=== PATIENT | male | born 1945 | race Caucasian/White ===

== ENCOUNTER → 2016-10-05 | Outpatient (REF) | payer MEDICARE ==
[2016-10-05 19:19] LABS: MEAN CORPUSCULAR HEMOGLOBIN 32.8 pg (27.0-33.0); MEAN CORPUSCULAR HGB CONC 32.6 g/dl (32.0-36.5); MEAN CORPUSCULAR VOLUME 100.6 fl (80.0-96.0); RED CELL DISTRIBUTION WIDTH 12.8 % (11.5-14.5); WHITE BLOOD COUNT 4.5 K/mm3 (4.0-10.0)
[2016-10-05 20:11] LABS: ALBUMIN/GLOBULIN RATIO 1.43 (1.00-1.93); ALKALINE PHOSPHATASE 87 U/L (45-117); ALT/SGPT 23 U/L (12-78); ANION GAP 6 MEQ/L (8-16); AST/SGOT 25 U/L (15-37); BILIRUBIN,TOTAL 0.8 MG/DL (0.2-1.0); BLOOD UREA NITROGEN 17 MG/DL (7-18); CARBON DIOXIDE LEVEL 32 MEQ/L (21-32); CHLORIDE LEVEL 104 MEQ/L (98-107); CHOLESTEROL LEVEL 185 MG/DL (<200); CREATININE FOR GFR 0.81 MG/DL (0.70-1.30); GLOMERULAR FILTRATION RATE > 60.0 (>42); GLUCOSE, FASTING 109 MG/DL (83-110); POTASSIUM SERUM 4.5 MEQ/L (3.5-5.1); SODIUM LEVEL 142 MEQ/L (136-145); TOTAL PROTEIN 6.8 GM/DL (6.4-8.2); TRIGLYCERIDES LEVEL 49 MG/DL (<150)
== END ==
LOC: M SFHCCAPE 10:07
PROVIDERS: ATTEND Internal Medicine
DX: R03.0 Elevated blood-pressure reading, without diagnosis of hypertension (principal); E78.00 Pure hypercholesterolemia, unspecified

== ENCOUNTER → 2016-10-07 | Outpatient (CLI) | payer MEDICARE ==
--- NOTE | 2016-10-07 14:03 | REP ---
Supine abdomen single AP view: Comparison is 10/17/2013. Multiple left renal calculi are again noted. No right renal calculi are identified, however the right kidney is obscured by bowel wall. There are numerous pelvic calcifications bilaterally, unchanged, likely phleboliths. The bowel gas pattern is normal. Skeletal structures and soft tissues are otherwise unremarkable except for bilateral hip osteoarthritis and mild lumbar spine degenerative disc disease. Impression: Left renal calculi. Signed by August Luz MD 10/07/2016 01:44 P
== END ==
LOC: M SMT 11:15
PROVIDERS: ATTEND Urology
DX: Z12.5 Encounter for screening for malignant neoplasm of prostate (principal); N20.0 Calculus of kidney
CPT/HCPCS: 36415; 74000; G0103; G0463

== ENCOUNTER 2017-02-01 06:32 | Emergency (ER) | payer MEDICARE ==
[~2017-02-01] VITALS: Ht 177.8 cm; Wt 77.2 kg
[2017-02-01 06:52] VITALS: BP 165/78
[2017-02-01] MEDS ORDERED: PRED10TA2 PO (07:41)
[2017-02-01] MEDS ORDERED: LORATADINE 10 MG TAB PO ONE (07:45)
[2017-02-01] MEDS ORDERED: predniSONE 20 MG TAB PO ONE (07:45)
== END 2017-02-01 07:54 | disposition home or self-care (01) ==
LOC: M ED 06:32
DX: L23.7 Allergic contact dermatitis due to plants, except food (principal); Z87.442 Personal history of urinary calculi

== ENCOUNTER → 2017-10-05 | Outpatient (REF) | payer MEDICARE ==
[2017-10-05 16:33] LABS: HEMOGLOBIN 16.5 g/dl (13.5-17.5); MEAN CORPUSCULAR HEMOGLOBIN 32.4 pg (27.0-33.0); MEAN CORPUSCULAR HGB CONC 33.7 g/dl (32.0-36.5); MEAN CORPUSCULAR VOLUME 96.3 fl (80.0-96.0); PLATELET COUNT, AUTOMATED 299 10^3/uL (150-450); RED BLOOD COUNT 5.09 10^6/uL (4.30-6.10); RED CELL DISTRIBUTION WIDTH 12.7 % (11.5-14.5); WHITE BLOOD COUNT 4.6 10^3/uL (4.0-10.0)
[2017-10-05 16:47] LABS: ALBUMIN 3.9 GM/DL (3.2-5.2); ALBUMIN/GLOBULIN RATIO 1.34 (1.00-1.93); ALKALINE PHOSPHATASE 86 U/L (45-117); ALT/SGPT 17 U/L (12-78); ANION GAP 5 MEQ/L (8-16); AST/SGOT 13 U/L (7-37); BILIRUBIN,TOTAL 0.7 MG/DL (0.2-1.0); BLOOD UREA NITROGEN 13 MG/DL (7-18); CALCIUM LEVEL 8.4 MG/DL (8.8-10.2); CARBON DIOXIDE LEVEL 28 MEQ/L (21-32); CHLORIDE LEVEL 108 MEQ/L (98-107); CHOLESTEROL LEVEL 191 MG/DL (<200); CHOLESTEROL RISK RATIO 2.652 (<5); CREATININE FOR GFR 0.77 MG/DL (0.70-1.30); GLOMERULAR FILTRATION RATE > 60.0 (>42); GLUCOSE, FASTING 106 MG/DL (70-100); HDL CHOLESTEROL 72 MG/DL (>40); LDL CHOLESTEROL 105.2 MG/DL (<100); NON-HDL-C 119 MG/DL; POTASSIUM SERUM 4.6 MEQ/L (3.5-5.1); SODIUM LEVEL 141 MEQ/L (136-145); TOTAL PROTEIN 6.8 GM/DL (6.4-8.2); TRIGLYCERIDES LEVEL 69 MG/DL (<150)
[2017-10-05 17:00] LABS: ESTIMATED AVERAGE GLUCOSE 123 MG/DL (60-110); HEMOGLOBIN A1c 5.9 %
== END ==
LOC: M SFHCCAPE 07:30
DX: G47.33 Obstructive sleep apnea (adult) (pediatric) (principal); E78.00 Pure hypercholesterolemia, unspecified; R03.0 Elevated blood-pressure reading, without diagnosis of hypertension; R73.09 Other abnormal glucose
CPT/HCPCS: 80053

== ENCOUNTER → 2017-10-18 | Outpatient (CLI) | payer MEDICARE | LOC: M SMT 13:02 | DX: N20.0 Calculus of kidney (principal); Z12.5 Encounter for screening for malignant neoplasm of prostate | CPT/HCPCS: 74018; G0103 ==

== ENCOUNTER → 2017-10-18 | Outpatient (CLI) | payer MEDICARE ==
[2017-10-18 17:32] LABS: PSA SCREENING 0.84 NG/ML (< 4.0)
== END ==
LOC: M SMT 13:35
DX: Z12.5 Encounter for screening for malignant neoplasm of prostate (principal)
CPT/HCPCS: G0103

== ENCOUNTER 2017-12-13 04:11 | Emergency (ER) | payer MEDICARE ==
[2017-12-13 04:51] LABS: BASO % 0.8 % (0.0-1.0); EOS # 0.1 10^3/uL (0.0-0.50); EOS % 1.5 % (0.0-3.0); HEMATOCRIT 47.6 % (42.0-52.0); HEMOGLOBIN 15.9 g/dl (13.5-17.5); IMMATURE GRANULOCYTE % 0.2 % (0-3.0); LYMPH # 1.1 10^3/uL (1.5-4.5); LYMPH % 23.7 % (24.0-44.0); MEAN CORPUSCULAR HEMOGLOBIN 32.7 pg (27.0-33.0); MEAN CORPUSCULAR HGB CONC 33.4 g/dl (32.0-36.5); MEAN CORPUSCULAR VOLUME 97.9 fl (80.0-96.0); MONO # 0.4 10^3/uL (0.0-0.8); MONO % 7.3 % (0.0-5.0); NEUTROPHILS # 3.2 10^3/uL (1.8-7.7); NEUTROPHILS % 66.5 % (36.0-66.0); PLATELET COUNT, AUTOMATED 281 10^3/uL (150-450); RED BLOOD COUNT 4.86 10^6/uL (4.30-6.10); RED CELL DISTRIBUTION WIDTH 12.8 % (11.5-14.5); WHITE BLOOD COUNT 4.8 10^3/uL (4.0-10.0)
[2017-12-13 04:56] LABS: KETONE, URINE AUTO RFX NEGATIVE (NEGATIVE); LEUKOCYTE ESTERASE UR AUTO RFX NEGATIVE (NEGATIVE); MUCUS, URINE RFX SMALL (NEGATIVE); NITRITE, URINE AUTO RFX NEGATIVE (NEGATIVE); RBC, URINE AUTO RFX TNTC /HPF (0-3); SPECIFIC GRAVITY UR AUTO RFX 1.021 (1.002-1.035); SQUAM EPITHELIAL CELL UR AURFX 0 /HPF (0-6); WBC, URINE AUTO RFX 2 /HPF (0-3)
[2017-12-13 05:40] LABS: ALBUMIN 3.4 GM/DL (3.2-5.2); ALBUMIN/GLOBULIN RATIO 1.31 (1.00-1.93); ALKALINE PHOSPHATASE 79 U/L (45-117); ALT/SGPT 21 U/L (12-78); ANION GAP 5 MEQ/L (8-16); AST/SGOT 14 U/L (7-37); BILIRUBIN,DIRECT < 0.1 MG/DL (0.0-0.2); BILIRUBIN,TOTAL 0.3 MG/DL (0.2-1.0); BLOOD UREA NITROGEN 21 MG/DL (7-18); CALCIUM LEVEL 8.2 MG/DL (8.8-10.2); CARBON DIOXIDE LEVEL 28 MEQ/L (21-32); CHLORIDE LEVEL 110 MEQ/L (98-107); CREATININE FOR GFR 0.73 MG/DL (0.70-1.30); GLOMERULAR FILTRATION RATE > 60.0 (>42); GLUCOSE, FASTING 117 MG/DL (70-100); POTASSIUM SERUM 4.3 MEQ/L (3.5-5.1); SODIUM LEVEL 143 MEQ/L (136-145)
[2017-12-13] MEDS ORDERED: ISOVUE-370 76% 100ML VIAL (Q9967) As Ordered (05:42)
== END 2017-12-13 06:58 | disposition home or self-care (01) ==
LOC: M ED 04:11
DX: N20.0 Calculus of kidney (principal); R31.9 Hematuria, unspecified; Z87.442 Personal history of urinary calculi; Z98.890 Other specified postprocedural states
CPT/HCPCS: Q9967

== ENCOUNTER → 2018-10-27 | Outpatient (REF) | payer MEDICARE ==
[~2018-10-27] MED LIST: OXYC1TAB23 PO; PRED10TA2 PO
[2018-10-27 16:54] LABS: HEMATOCRIT 49.1 % (42.0-52.0); HEMOGLOBIN 16.3 g/dl (13.5-17.5); MEAN CORPUSCULAR HEMOGLOBIN 33.4 pg (27.0-33.0); MEAN CORPUSCULAR HGB CONC 33.2 g/dl (32.0-36.5); MEAN CORPUSCULAR VOLUME 100.6 fl (80.0-96.0); PLATELET COUNT, AUTOMATED 304 10^3/uL (150-450); RED BLOOD COUNT 4.88 10^6/uL (4.30-6.10); WHITE BLOOD COUNT 4.8 10^3/uL (4.0-10.0)
[2018-10-27 17:28] LABS: ALBUMIN 3.4 GM/DL (3.2-5.2); ALT/SGPT 22 U/L (12-78); BILIRUBIN,TOTAL 0.5 MG/DL (0.2-1.0); BLOOD UREA NITROGEN 21 MG/DL (7-18); CALCIUM LEVEL 8.1 MG/DL (8.8-10.2); CARBON DIOXIDE LEVEL 30 MEQ/L (21-32); CHLORIDE LEVEL 109 MEQ/L (98-107); CHOLESTEROL LEVEL 195 MG/DL (<200); CHOLESTEROL RISK RATIO 2.826 (<5); CREATININE FOR GFR 0.86 MG/DL (0.70-1.30); GLOMERULAR FILTRATION RATE > 60.0 (>42); GLUCOSE, FASTING 111 MG/DL (70-100); HDL CHOLESTEROL 69 MG/DL (>40); LDL CHOLESTEROL 109 MG/DL (<100); NON-HDL-C 126 MG/DL; POTASSIUM SERUM 4.5 MEQ/L (3.5-5.1); SODIUM LEVEL 142 MEQ/L (136-145); TOTAL PROTEIN 6.1 GM/DL (6.4-8.2); TRIGLYCERIDES LEVEL 83 MG/DL (<150)
== END ==
LOC: M SFHCCAPE 07:11
PROVIDERS: ATTEND Internal Medicine
DX: G47.33 Obstructive sleep apnea (adult) (pediatric) (principal); R03.0 Elevated blood-pressure reading, without diagnosis of hypertension; E78.00 Pure hypercholesterolemia, unspecified

== ENCOUNTER → 2018-11-02 | Outpatient (CLI) | payer MEDICARE ==
--- NOTE | 2018-11-02 15:55 | REP ---
KUB ABDOMEN AND PELVIS: KUB film of abdomen and pelvis is performed and compared to prior study of 10/18/2017. There is a nonobstructive bowel gas pattern. An oval calcification overlying the upper pole of the left kidney appears to represent a renal calculus measuring about 6 mm. On the prior study there appeared to be an adjacent second calculus, but this is not visualized on today's exam. There is a small calculus in the lower pole of the left kidney which measures 3 mm. Otherwise there are phleboliths again seen bilaterally in the pelvis. There are degenerative changes of the spine and hips. IMPRESSION: Two intrarenal calculi left kidney, one in the upper pole 6 mm in diameter and one in the lower pole 3 mm in diameter. Electronically Signed by August Roldan MD 11/02/2018 04:11 P
== END ==
LOC: M SMT 14:17
PROVIDERS: ATTEND Nurse Practitioner Family
DX: N20.0 Calculus of kidney (principal)
CPT/HCPCS: 74018; G0463

== ENCOUNTER → 2019-10-31 | Outpatient (REF) | payer MEDICARE ==
[2019-10-31 14:24] LABS: HEMATOCRIT 53.9 % (42.0-52.0); HEMOGLOBIN 17.3 g/dl (13.5-17.5); MEAN CORPUSCULAR HEMOGLOBIN 33.1 pg (27.0-33.0); MEAN CORPUSCULAR HGB CONC 32.1 g/dl (32.0-36.5); MEAN CORPUSCULAR VOLUME 103.1 fl (80.0-96.0); PLATELET COUNT, AUTOMATED 341 10^3/uL (150-450); RED BLOOD COUNT 5.23 10^6/uL (4.30-6.10); WHITE BLOOD COUNT 4.9 10^3/uL (4.0-10.0)
[2019-10-31 14:38] LABS: ALBUMIN 3.7 GM/DL (3.2-5.2); ALT/SGPT 26 U/L (12-78); BILIRUBIN,TOTAL 0.6 MG/DL (0.2-1.0); BLOOD UREA NITROGEN 12 MG/DL (7-18); CALCIUM LEVEL 8.9 MG/DL (8.8-10.2); CARBON DIOXIDE LEVEL 34 MEQ/L (21-32); CHLORIDE LEVEL 105 MEQ/L (98-107); CHOLESTEROL LEVEL 183 MG/DL (<200); CHOLESTEROL RISK RATIO 2.541 (<5); CREATININE FOR GFR 0.87 MG/DL (0.70-1.30); GLOMERULAR FILTRATION RATE > 60.0 (>42); GLUCOSE, FASTING 117 MG/DL (70-100); HDL CHOLESTEROL 72 MG/DL (>40); LDL CHOLESTEROL 100 MG/DL (<100); NON-HDL-C 111 MG/DL; POTASSIUM SERUM 4.7 MEQ/L (3.5-5.1); SODIUM LEVEL 143 MEQ/L (136-145); TOTAL PROTEIN 6.6 GM/DL (6.4-8.2); TRIGLYCERIDES LEVEL 56 MG/DL (<150)
[2019-10-31 15:02] LABS: MAU/CREAT RATIO 6.2 MCG/MG (0.0-30.0)
[2019-10-31 15:06] LABS: HEMOGLOBIN A1c 5.8 %
== END ==
LOC: M PLALAB 09:58
PROVIDERS: ATTEND Internal Medicine
DX: G47.33 Obstructive sleep apnea (adult) (pediatric) (principal); E78.00 Pure hypercholesterolemia, unspecified; R03.0 Elevated blood-pressure reading, without diagnosis of hypertension

== ENCOUNTER → 2019-10-31 | Outpatient (CLI) | payer MEDICARE ==
--- NOTE | 2019-10-31 10:10 | REP ---
KUB: Two views. HISTORY: Kidney stones. Comparison KUB study November 02, 2018. FINDINGS: There is an irregular 8 mm calculus projecting in the upper pole left kidney and a second 5 mm calculus projects in the lower pole left kidney. There are phleboliths in the pelvis. No other definite urinary tract calculi are seen. There are degenerative changes in the hips and in the lumbar spine. IMPRESSION: Intrarenal nephrolithiasis left kidney. Electronically Signed by Howie Rutherford MD 10/31/2019 12:02 P
== END ==
LOC: M WUC 09:12
PROVIDERS: ATTEND Nurse Practitioner Family
DX: N20.0 Calculus of kidney (principal); I87.8 Other specified disorders of veins; M16.0 Bilateral primary osteoarthritis of hip; M51.36 Other intervertebral disc degeneration, lumbar region; G47.33 Obstructive sleep apnea (adult) (pediatric); E78.00 Pure hypercholesterolemia, unspecified; R03.0 Elevated blood-pressure reading, without diagnosis of hypertension; Z79.899 Other long term (current) drug therapy

== ENCOUNTER → 2019-11-27 | Outpatient (CLI) | payer MEDICARE ==
--- NOTE | 2019-11-27 12:26 | REP ---
REASON: History of renal calculi. COMPARISON: Multiple, the latest 12/13/2017, a contrast enhanced examination. Lung bases are clear. Limited evaluation of the solid intra-abdominal organs and gallbladder show no gross abnormalities or significant changes from the prior exam. Limited evaluation of the pancreas and adrenal glands show no gross abnormalities or significant changes from the prior exam. Limited evaluation of the abdominal aorta and paraaortic regions show no gross abnormalities or significant changes from the prior exam. There is bilateral perinephric stranding and bilateral renal cysts status quo. There is a single 2 mm calcification in the right kidney which is not causing obstructive phenomena. This is unchanged. There are three nonobstructing left renal calculi. These are unchanged. There are no ureteroliths and there are no urinary bladder calcifications. There are bilateral pelvic phleboliths status quo. Limited evaluation of the intra-abdominal and antral pelvic bowel loops and their mesenteries show no gross abnormalities or significant changes from the prior exam. No free fluid or free air is seen in the abdomen or pelvis. Bone window technique through the examination shows no significant change in the appearance of osseous structures. Chronic degenerative hip, spinal, and sacroiliac degenerative changes are noted status quo. IMPRESSION: Stable appearing chronic renal changes as described above. Electronically Signed by Ten Ventura DO 11/27/2019 12:36 P
== END ==
LOC: M RAD 09:57
PROVIDERS: ATTEND Nurse Practitioner Family
DX: N20.0 Calculus of kidney (principal); N28.1 Cyst of kidney, acquired

== ENCOUNTER → 2019-12-14 | Outpatient (CLI) | payer MEDICARE ==
[~2019-12-14] MED LIST changes: +CYAN500T14 PO; +ECOT81TA5 PO; +OCUV1CAP4 PO
--- NOTE | 2019-12-14 10:12 | REPPI ---
CHEST X-RAY: Single view. HISTORY: Kidney stone. FINDINGS: Nipple silhouettes project at the bases. The lungs are symmetrically aerated and free of infiltrate. Pleural angles are sharp. Heart size is normal. No acute bony abnormality is appreciated. Pulmonary vasculature is not increased. IMPRESSION: No active disease. Electronically Signed by Howie Rutherford MD 12/14/2019 10:18 A
[2019-12-14 11:21] LABS: HEMATOCRIT 53.9 % (42.0-52.0); HEMOGLOBIN 17.5 g/dl (13.5-17.5); MEAN CORPUSCULAR HGB CONC 32.5 g/dl (32.0-36.5); MEAN CORPUSCULAR VOLUME 101.7 fl (80.0-96.0); PLATELET COUNT, AUTOMATED 338 10^3/uL (150-450); WHITE BLOOD COUNT 4.4 10^3/uL (4.0-10.0)
[2019-12-14 11:35] LABS: INR 1.02; PROTHROMBIN TIME 13.1 SECONDS (11.8-14.0)
[2019-12-14 11:36] LABS: PARTIAL THROMBOPLASTIN TIME 27.5 SECONDS (25.0-38.4)
[2019-12-14 11:42] LABS: BLOOD UREA NITROGEN 21 MG/DL (7-18); CALCIUM LEVEL 8.7 MG/DL (8.8-10.2); CARBON DIOXIDE LEVEL 32 MEQ/L (21-32); CHLORIDE LEVEL 106 MEQ/L (98-107); CREATININE FOR GFR 0.92 MG/DL (0.70-1.30); GLOMERULAR FILTRATION RATE > 60.0 (>42); GLUCOSE, FASTING 109 MG/DL (70-100); POTASSIUM SERUM 5.1 MEQ/L (3.5-5.1); SODIUM LEVEL 141 MEQ/L (136-145)
== END ==
LOC: M PLAIMG 08:32
PROVIDERS: ATTEND Nurse Practitioner Family
DX: Z01.818 Encounter for other preprocedural examination (principal); N20.0 Calculus of kidney

== ENCOUNTER → 2019-12-20 | Outpatient (CLI) | payer MEDICARE ==
[~2019-12-20] MED LIST changes: -CYAN500T14 PO; +CYAN500T8 PO; -ECOT81TA5 PO
--- NOTE | 2019-12-26 22:41 | SLEEPCENT ---
DATE OF PROCEDURE: 12/20/2019 ORDERED BY: LORENA Jaimes Nocturnal polysomnography was performed for the titration of pressure therapy in this patient with obstructive sleep apnea syndrome, apnea-hypopnea index 8.2. For testing, a ResMed AirFit F20 full face mask of medium size was used, 4 cm of water pressure were applied to the circuit and the lights were extinguished. 7 hours and 25 minutes of data were reviewed. There were 185.5 minutes of sleep identified. Sleep latency was prolonged at 47.5 minutes. Rapid eye movement (REM) latency was normal at 58 minutes. Sleep architecture showed fragmentation. There were two REM cycles noted, but there were also two prolonged periods of wake in the night resulting in reduced sleep efficiency of 42.3%. The patient's electrocardiogram showed a sinus rhythm with an average heart rate of 46 beats per minute. Rate ranged 42-80. EEG showed fairly normal waveforms for awake and sleep. Shortly after sleep onset and shortly after each return to sleep in the night, the patient displayed obstructive and central apneas. Pressures were advanced from 4-6 cm. The frequency of central events increased with higher pressures. There were very few limb movements in the EMG leads. No snoring was appreciated and remaining measures of sleep physiology were normal. IMPRESSION: Obstructive sleep apnea syndrome. RECOMMENDATIONS: Though an optimal pressure was unable to be achieved, a pattern of apneas shortly after sleep onset was seen, and the emergence of central events was also prevalent at increased pressures. In light of the this, initiation of continuous positive airway pressure (CPAP) via full face mask and a low pressure of 4 cm may be the most effective strategy. If the patient experiences persistence of sleep symptoms, it may be necessary to have him return to the sleep disorder center for titration using a bilevel device and backup rate.
== END ==
LOC: M SLEEP 20:00
PROVIDERS: ATTEND Nurse Practitioner Family
DX: G47.33 Obstructive sleep apnea (adult) (pediatric) (principal)

== ENCOUNTER → 2019-12-25 | Outpatient (CLI) | payer MEDICARE | LOC: M LABSMTC 10:40 | PROVIDERS: ATTEND Anesthesiology | DX: Z01.818 Encounter for other preprocedural examination (principal); Z11.59 Encounter for screening for other viral diseases | CPT/HCPCS: C9803; U0003 ==

== ENCOUNTER 2019-12-28 06:10 | Day surgery (SDC) | payer MEDICARE ==
[~2019-12-28] VITALS: Ht 177.8 cm; Wt 78.5 kg
[2019-12-28] MEDS ORDERED: LR 1,000 ML IV ONE (07:00)
[2019-12-28] MEDS ORDERED: ceFAZolin SOD 2 GM in IV 1 EA IV ONE (07:00)
[2019-12-28] MEDS ORDERED: LIDOCAINE 2% 100MG/5ML SDV (FOR ANES.) As Ordered ONE (07:05)
[2019-12-28] MEDS ORDERED: propofoL 200 MG/20 ML VIAL As Ordered ONE ×2 (07:05→08:29)
[2019-12-28] MEDS ORDERED: MIDAZOLAM INJ 2MG/2ML VIAL (J2250 PER 1MG) As Ordered ONE (07:06)
[2019-12-28] MEDS ORDERED: fentaNYL 100 MCG/2 ML INJECTION (J3010) As Ordered ONE (07:06)
--- NOTE | 2019-12-28 07:56 | REP ---
Clinical: Preoperative assessment. Technique: Single supine view of the abdomen and pelvis. Comparison: 11/02/2018. Findings: Few small left intrarenal calculi are identified in the mid pole and lower pole measuring roughly 4 mm maximal diameter. Right intrarenal calculi cannot be excluded, and further evaluation is limited due to overlying bowel gas. No evidence for bowel obstruction. No obvious organomegaly. Presumed phleboliths noted in the pelvis. Skeletal structures demonstrate age-related changes. Impression: Few left intrarenal calculi up to 4 mm. Cannot exclude right intrarenal calculi. Electronically Signed by Antione Alex MD 12/28/2019 07:48 A
[2019-12-28 09:40] VITALS: BP 182/83
--- NOTE | 2020-01-03 13:19 | RO ---
DATE OF PROCEDURE: 12/28/2019 PREPROCEDURE DIAGNOSIS: Left kidney stones. POSTPROCEDURE DIAGNOSIS: Left kidney stones. PROCEDURE: Left extracorporeal shockwave lithotripsy. SURGEON: Dr. Krish Ayala CLOCK AND WATCH HANDS MOUNTER: None. ANESTHESIA: Monitored anesthesia care (MAC). OPERATIVE INDICATIONS: This is a 74-year-old male with nonobstructing left kidney stones who was brought to the operating room for the above procedure. DESCRIPTION OF PROCEDURE: The patient was brought to the operating room and MAC anesthesia was administered. Prophylactic antibiotics were infused. He was then placed in the supine position in preparation for the above listed procedure. Ultrasound was utilized to monitor stone position and fragmentation throughout the procedure. Shockwaves were then delivered to the left sided kidney stones ungated. We specifically targeted the larger of the stones in the mid to lower pole calices. There were no arrhythmias. The stones appeared to fragment well. After 2500 shocks, the procedure was concluded. The patient was awakened from anesthesia and transported to the recovery room in stable condition. Estimated blood loss 0 mL. Complications: None. Specimens: None. Plan: The patient will followup in the clinic in a few weeks with imaging prior to assess for residual stone burden. NATALIIA
[2020-01-15] MEDS ORDERED: ECOT81TA5 PO (12:33)
== END 2020-01-29 13:50 | disposition home or self-care (01) ==
LOC: M SDC 06:10
PROVIDERS: ATTEND Urology
DX: N20.0 Calculus of kidney (principal); G47.33 Obstructive sleep apnea (adult) (pediatric); Z79.899 Other long term (current) drug therapy
CPT/HCPCS: 50590; 74018; J0690; J2250; J3010

== ENCOUNTER → 2020-01-17 | Outpatient (CLI) | payer MEDICARE ==
[~2020-01-17] MED LIST changes: +ECOT81TA5 PO
== END ==
LOC: M LABSMTC 10:04
PROVIDERS: ATTEND Anesthesiology
DX: Z01.818 Encounter for other preprocedural examination (principal); Z11.59 Encounter for screening for other viral diseases; Z20.828 Contact with and (suspected) exposure to other viral communicable diseases
CPT/HCPCS: C9803; U0003

== ENCOUNTER → 2020-01-29 | Day surgery (SDC) | payer MEDICARE ==
[~2020-01-29] MED LIST changes: +LIDOCAINE 2% 100MG/5ML SDV (FOR ANES.) As Ordered ONE; +propofoL 500 MG/50 ML VIAL As Ordered ONE
--- NOTE | 2020-03-06 11:27 | ROOR ---
Patient Name: Bo Phan Procedure Date: 01/29/2020 12:36 PM Date of : 1945 Age: 74 Room: [facility] Gender: Male Note Status: Sustainability Manager Override Procedure: Total Colonoscopy to Cecum + Cold Snare Polypectomy + Hemoclips Indications: High risk colon cancer surveillance: Personal history of colonic polyps, Last colonoscopy: 2013 Providers: Srini Dang MD Referring MD: Neel Szymanski MD Requesting Provider: Medicines: Monitored Anesthesia Care Complications: No immediate complications. Procedure: Pre-Anesthesia Assessment: - The heart rate, respiratory rate, oxygen saturations, blood pressure, adequacy of pulmonary ventilation, and response to care were monitored throughout the procedure. The Colonoscope was introduced through the anus and advanced to the cecum, identified by appendiceal orifice and ileocecal valve. The colonoscopy was performed without difficulty. The patient tolerated the procedure well. The quality of the bowel preparation was good. Findings: The perianal and digital rectal examinations were normal. Non-bleeding internal hemorrhoids were found during retroflexion. The hemorrhoids were small and Grade I (internal hemorrhoids that do not prolapse). Multiple sessile polyps were found in the mid ascending colon. The polyps were medium in size. These polyps were removed with a cold snare. Resection and retrieval were complete. To prevent bleeding after the polypectomy, three hemostatic clips were successfully placed (MR conditional). There was no bleeding at the end of the procedure. The exam was otherwise without abnormality on direct and retroflexion views. Impression: - Non-bleeding internal hemorrhoids. - Multiple medium polyps in the mid ascending colon, removed with a cold snare. Resected and retrieved. Clips (MR conditional) were placed. - The examination was otherwise normal on direct and retroflexion views. - The exam was otherwise normal to the cecum. Recommendation: - Patient has a contact number available for emergencies. The signs and symptoms of potential delayed complications were discussed with the patient. Return to normal activities tomorrow. Written discharge instructions were provided to the patient. - High fiber diet. - Discharge patient to home. - Continue present medications. - Await pathology results. - Telephone GI clinic for pathology results in 1 week. - Repeat colonoscopy for surveillance based on pathology results. - Return to referring physician. - The findings and recommendations were discussed with the patient. Srini Dang MD Srini Dang MD 01/29/2020 1:17:42 PM Electronically signed by Srini Dang MD Number of Addenda: 0 Note Initiated On: 01/29/2020 12:36 PM Estimated Blood Loss: Estimated blood loss: none.
== END | disposition home or self-care (01) ==
LOC: M OPP 11:15
PROVIDERS: ATTEND Internal Medicine Gastroenterology
DX: Z12.11 Encounter for screening for malignant neoplasm of colon (principal); Z86.010 Personal history of colon polyps; K64.0 First degree hemorrhoids; D12.2 Benign neoplasm of ascending colon; Z79.82 Long term (current) use of aspirin

== ENCOUNTER → 2020-02-23 | Outpatient (CLI) | payer MEDICARE ==
[~2020-02-23] MED LIST changes: -LIDOCAINE 2% 100MG/5ML SDV (FOR ANES.) As Ordered ONE; -propofoL 500 MG/50 ML VIAL As Ordered ONE
--- NOTE | 2020-03-12 15:25 | REPPI ---
KUB: SINGLE VIEW HISTORY: Kidney stones. COMPARISON: KUB study 12/28/2019. FINDINGS: Bowel gas pattern is unremarkable. There are three metallic mucosal clips in the right colon in the region of the cecum. Phleboliths are noted in the pelvis. There is calcific material projecting over the lower pole of both kidneys and the upper pole of the left kidney. The largest calcific density is in the upper pole region of the left kidney measuring 8 mm in diameter. Bowel gas overlies much of the right kidney. IMPRESSION: Bilateral intrarenal nephrolithiasis as above. An 8 mm calculus upper pole collecting system left kidney. This is larger than on the prior study. MTDD
== END ==
LOC: M PLALAB 08:22
PROVIDERS: ATTEND Nurse Practitioner Family
DX: N20.0 Calculus of kidney (principal)

== ENCOUNTER → 2020-10-16 | Outpatient (CLI) | payer MEDICARE ==
[~2020-10-16] MED LIST changes: +CYAN500T14 PO; -CYAN500T8 PO
--- NOTE | 2020-10-16 09:17 | REPPI ---
INDICATION: KIDNEY STONES. COMPARISON: Comparison radiograph February 23, 2020.. TECHNIQUE: Two views. FINDINGS: Bowel gas pattern is unremarkable. There are degenerative spondylosis changes in the lumbar spine. There are calcific densities again noted projecting over the lower poles of each kidney and at the upper pole region on the left. The largest calcification is in the upper pole on the left measuring 8 mm in greatest diameter as before. There are phleboliths in the pelvis. No other pathologic calcification is seen. Flank stripes and psoas margins are intact. IMPRESSION: Bilateral intrarenal nephrolithiasis. <Electronically signed by Erich Rutherford > 10/16/20 0921
== END ==
LOC: M PLAIMG 08:14
PROVIDERS: ATTEND Nurse Practitioner Family
DX: N20.0 Calculus of kidney (principal); M47.816 Spondylosis without myelopathy or radiculopathy, lumbar region; I87.8 Other specified disorders of veins
CPT/HCPCS: 74018; G0463

== ENCOUNTER → 2020-10-29 | Outpatient (REF) | payer MEDICARE ==
[2020-10-29 16:51] LABS: HEMATOCRIT 50.8 % (42.0-52.0); HEMOGLOBIN 16.9 g/dl (13.5-17.5); MEAN CORPUSCULAR HEMOGLOBIN 33.1 pg (27.0-33.0); MEAN CORPUSCULAR HGB CONC 33.3 g/dl (32.0-36.5); MEAN CORPUSCULAR VOLUME 99.4 fl (80.0-96.0); PLATELET COUNT, AUTOMATED 360 10^3/uL (150-450); RED BLOOD COUNT 5.11 10^6/uL (4.30-6.10); WHITE BLOOD COUNT 5.1 10^3/uL (4.0-10.0)
[2020-10-29 17:23] LABS: ALBUMIN 3.4 GM/DL (3.2-5.2); ALT/SGPT 15 U/L (12-78); BILIRUBIN,TOTAL 0.8 MG/DL (0.2-1.0); BLOOD UREA NITROGEN 16 MG/DL (7-18); CALCIUM LEVEL 8.4 MG/DL (8.8-10.2); CARBON DIOXIDE LEVEL 28 MEQ/L (21-32); CHLORIDE LEVEL 107 MEQ/L (98-107); CHOLESTEROL LEVEL 152 MG/DL (<200); CHOLESTEROL RISK RATIO 2.576 (<5); CREATININE FOR GFR 0.73 MG/DL (0.70-1.30); GLOMERULAR FILTRATION RATE > 60.0 (>42); GLUCOSE, FASTING 111 MG/DL (70-100); HDL CHOLESTEROL 59 MG/DL (>40); LDL CHOLESTEROL 78 MG/DL (<100); NON-HDL-C 93 MG/DL; POTASSIUM SERUM 4.8 MEQ/L (3.5-5.1); SODIUM LEVEL 140 MEQ/L (136-145); TOTAL PROTEIN 5.9 GM/DL (6.4-8.2); TRIGLYCERIDES LEVEL 73 MG/DL (<150)
[2020-10-29 17:40] LABS: FOLATE 12.5 NG/ML; VITAMIN B12 LEVEL 259 PG/ML
[2020-10-29 18:21] LABS: HEMOGLOBIN A1c 5.6 %
== END ==
LOC: M SFHCCAPE 07:38
PROVIDERS: ATTEND Internal Medicine
DX: G47.33 Obstructive sleep apnea (adult) (pediatric) (principal); E78.00 Pure hypercholesterolemia, unspecified; R03.0 Elevated blood-pressure reading, without diagnosis of hypertension; R53.82 Chronic fatigue, unspecified; Z79.899 Other long term (current) drug therapy

== ENCOUNTER → 2021-03-21 | Outpatient (CLI) | payer MEDICARE ==
[~2021-03-21] MED LIST changes: +CHLO125TA; +D31000TA2 PO
== END ==
LOC: M LABSMTC 10:00
PROVIDERS: ATTEND Anesthesiology
DX: Z01.812 Encounter for preprocedural laboratory examination (principal); Z20.822 Contact with and (suspected) exposure to COVID-19

== ENCOUNTER → 2021-03-21 | Outpatient (CLI) | payer MEDICARE ==
--- NOTE | 2021-03-21 10:37 | REP ---
INDICATION: CALCULUS OF KIDNEY. COMPARISON: KUB, 12/28/2019. TECHNIQUE: Two AP supine images of the abdomen were obtained. FINDINGS: There are 2 calcific densities projected over the lower pole of the left kidney measuring 7 and 2 mm in greatest dimension, respectively. There are no calcific densities project over the path of either ureter. There is stool throughout the colon. The bowel gas pattern is otherwise unremarkable. There is multilevel degenerative disc disease of the lumbar spine. IMPRESSION: 1. Left nephrolithiasis. 2. Moderate constipation. <Electronically signed by Shalom Wall > 03/21/21 1030
== END ==
LOC: M PLAIMG 10:09
PROVIDERS: ATTEND Nurse Practitioner Family
DX: Z01.812 Encounter for preprocedural laboratory examination (principal); N20.0 Calculus of kidney; Z20.822 Contact with and (suspected) exposure to COVID-19
CPT/HCPCS: 74018; U0003

== ENCOUNTER 2021-03-26 12:11 | Day surgery (SDC) | payer MEDICARE ==
[~2021-03-26] VITALS: Ht 177.8 cm; Wt 76.2 kg
[~2021-03-26 12:11] MED LIST changes: +NS 1,000 ML IV ONE
[2021-03-26] MEDS ORDERED: propofoL 200 MG/20 ML VIAL As Ordered ONE (14:30)
[2021-03-26] MEDS ORDERED: LIDOCAINE 2% 100MG/5ML SDV (FOR ANES.) As Ordered ONE (14:30)
--- NOTE | 2021-03-26 15:12 | ROOR ---
Patient Name: Bo Phan Procedure Date: 03/26/2021 2:41 PM Date of : 1945 Age: 75 Room: [facility] Gender: Male Note Status: Finalized Procedure: Total Colonoscopy to Cecum + Biopsy Polypectomy Indications: High risk colon cancer surveillance: Personal history of adenoma with villous component Providers: Srini Dang MD Referring MD: Neel Szymanski MD Requesting Provider: Medicines: Monitored Anesthesia Care Complications: No immediate complications. Procedure: Pre-Anesthesia Assessment: - The heart rate, respiratory rate, oxygen saturations, blood pressure, adequacy of pulmonary ventilation, and response to care were monitored throughout the procedure. The Colonoscope was introduced through the anus and advanced to the cecum, identified by appendiceal orifice and ileocecal valve. The colonoscopy was performed without difficulty. The patient tolerated the procedure well. The quality of the bowel preparation was excellent. Findings: The perianal and digital rectal examinations were normal. Non-bleeding external and internal hemorrhoids were found during retroflexion. The hemorrhoids were small and Grade I (internal hemorrhoids that do not prolapse). Two sessile polyps were found in the mid ascending colon. The polyps were small in size. These polyps were removed with a jumbo cold forceps. Resection and retrieval were complete. The exam was otherwise without abnormality on direct and retroflexion views. Impression: - Non-bleeding external and internal hemorrhoids. - Two small polyps in the mid ascending colon, removed with a jumbo cold forceps. Resected and retrieved. - The examination was otherwise normal on direct and retroflexion views. - The exam was otherwise normal to the cecum. Recommendation: - Patient has a contact number available for emergencies. The signs and symptoms of potential delayed complications were discussed with the patient. Return to normal activities tomorrow. Written discharge instructions were provided to the patient. - High fiber diet. - Discharge patient to home. - Continue present medications. - Await pathology results. - Telephone GI clinic for pathology results in 1 week. - Repeat colonoscopy date to be determined after pending pathology results are reviewed for surveillance based on pathology results. - Return to referring physician. - The findings and recommendations were discussed with the patient. Procedure Code(s): --- Professional --- 86430, Colonoscopy, flexible; with biopsy, single or multiple Diagnosis Code(s): --- Professional --- Z86.010, Personal history of colonic polyps K64.0, First degree hemorrhoids K63.5, Polyp of colon CPT copyright 2019 [employer]. All rights reserved. The codes documented in this report are preliminary and upon can tender review may be revised to meet current compliance requirements. Srini Dang MD Srini Dang MD 03/26/2021 3:12:11 PM Electronically signed by Srini Dang MD Number of Addenda: 0 Note Initiated On: 03/26/2021 2:41 PM Estimated Blood Loss: Estimated blood loss: none.
[2021-03-26 15:45] VITALS: BP 142/64
== END 2021-03-26 16:00 | disposition home or self-care (01) ==
LOC: M OPP 12:11
PROVIDERS: ATTEND Internal Medicine Gastroenterology
DX: D12.2 Benign neoplasm of ascending colon (principal); K64.0 First degree hemorrhoids; Z86.010 Personal history of colon polyps; Z09 Encounter for follow-up examination after completed treatment for conditions other than malignant neoplasm; Z79.82 Long term (current) use of aspirin; Z79.899 Other long term (current) drug therapy

== ENCOUNTER → 2021-10-28 | Outpatient (REF) | payer MEDICARE ==
[~2021-10-28] MED LIST changes: -D31000TA2 PO; -NS 1,000 ML IV ONE; +VITA100093 PO
[2021-10-28 16:21] LABS: BASO # 0.1 10^3/uL (0.0-0.2); BASO % 0.8 % (0.0-1.0); EOS # 0.1 10^3/uL (0.0-0.5); EOS % 2.2 % (0.0-3.0); HEMATOCRIT 48.9 % (42.0-52.0); LYMPH # 1.7 10^3/uL (1.5-5.0); LYMPH % 28.5 % (24.0-44.0); MEAN CORPUSCULAR HEMOGLOBIN 32.6 pg (27.0-33.0); MEAN CORPUSCULAR HGB CONC 32.7 g/dl (32.0-36.5); MEAN CORPUSCULAR VOLUME 99.6 fl (80.0-96.0); MONO # 0.4 10^3/uL (0.0-0.8); MONO % 7.5 % (2.0-8.0); NEUTROPHILS # 3.6 10^3/uL (1.5-8.5); NEUTROPHILS % 60.7 % (36.0-66.0); PLATELET COUNT, AUTOMATED 414 10^3/uL (150-450); RED BLOOD COUNT 4.91 10^6/uL (4.30-6.10); WHITE BLOOD COUNT 5.9 10^3/uL (4.0-10.0)
[2021-10-28 16:32] LABS: HEMOGLOBIN A1c 5.7 %
[2021-10-28 16:53] LABS: ALBUMIN 3.3 GM/DL (3.2-5.2); ALT/SGPT 13 U/L (12-78); BILIRUBIN,TOTAL 0.8 MG/DL (0.2-1.0); BLOOD UREA NITROGEN 22 MG/DL (7-18); CALCIUM LEVEL 8.4 MG/DL (8.8-10.2); CARBON DIOXIDE LEVEL 32 MEQ/L (21-32); CHLORIDE LEVEL 105 MEQ/L (98-107); CHOLESTEROL LEVEL 131 MG/DL (<200); CHOLESTEROL RISK RATIO 2.977 (<5); GLOMERULAR FILTRATION RATE > 60.0 (>42); GLUCOSE, FASTING 106 MG/DL (70-100); HDL CHOLESTEROL 44 MG/DL (>40); LDL CHOLESTEROL 63 MG/DL (<100); NON-HDL-C 87 MG/DL; POTASSIUM SERUM 4.6 MEQ/L (3.5-5.1); SODIUM LEVEL 140 MEQ/L (136-145); TOTAL PROTEIN 5.9 GM/DL (6.4-8.2); TRIGLYCERIDES LEVEL 121 MG/DL (<150)
[2021-10-28 17:38] LABS: HEPATITIS C VIRUS ABY INDEX 0.1 INDEX (<0.8)
== END ==
LOC: M SFHCCAPE 07:47
PROVIDERS: ATTEND Internal Medicine
DX: G47.33 Obstructive sleep apnea (adult) (pediatric) (principal); E78.00 Pure hypercholesterolemia, unspecified; Z11.59 Encounter for screening for other viral diseases; R73.09 Other abnormal glucose; Z12.5 Encounter for screening for malignant neoplasm of prostate
CPT/HCPCS: 80053; 80061; 83036; 85025; 86803; G0103

== ENCOUNTER → 2021-11-05 | Outpatient (REF) | payer MEDICARE | LOC: M SFHCPLAZ 08:13 | PROVIDERS: ATTEND Internal Medicine | DX: R61 Generalized hyperhidrosis (principal); M79.10 Myalgia, unspecified site ==

== ENCOUNTER → 2021-11-05 | Outpatient (CLI) | payer MEDICARE ==
[2021-11-05 11:14] LABS: C REACTIVE PROTEIN QUANTITATIV < 0.30 MG/DL (0.00-0.30)
== END ==
LOC: M PLALAB 08:27
PROVIDERS: ATTEND Internal Medicine
DX: M79.10 Myalgia, unspecified site (principal)

== ENCOUNTER → 2021-11-10 | Outpatient (CLI) | payer MEDICARE ==
[~2021-11-10] MED LIST changes: +ISOVUE-370 76% 100ML VIAL ONE
== END ==
LOC: M PLAIMG 13:06
PROVIDERS: ATTEND Internal Medicine
DX: N20.0 Calculus of kidney (principal); R63.4 Abnormal weight loss
CPT/HCPCS: 74170; Q9967

== ENCOUNTER → 2022-01-01 | Outpatient (REF) | payer MEDICARE ==
[~2022-01-01] MED LIST changes: -ISOVUE-370 76% 100ML VIAL ONE
== END ==
LOC: M SFHCDERM 14:26
PROVIDERS: ATTEND Nurse Practitioner Family
DX: D23.39 Other benign neoplasm of skin of other parts of face (principal)

== ENCOUNTER → 2022-02-11 | Outpatient (REF) | payer MEDICARE | LOC: M SFHCDERM 14:21 | PROVIDERS: ATTEND Nurse Practitioner Family | DX: D18.01 Hemangioma of skin and subcutaneous tissue (principal) ==

== ENCOUNTER → 2022-03-30 | Outpatient (REF) | payer MEDICARE | LOC: M SFHCDERM 17:54 | PROVIDERS: ATTEND Nurse Practitioner Family | DX: D18.01 Hemangioma of skin and subcutaneous tissue (principal) ==

== ENCOUNTER → 2022-10-13 | Outpatient (REF) | payer MEDICARE ==
[2022-10-13 18:30] LABS: HEMOGLOBIN 13.1 g/dl (13.5-17.5); MEAN CORPUSCULAR HEMOGLOBIN 32.8 pg (27.0-33.0); MEAN CORPUSCULAR VOLUME 102.5 fl (80.0-96.0); PLATELET COUNT, AUTOMATED 308 10^3/uL (150-450); WHITE BLOOD COUNT 5.1 10^3/uL (4.0-10.0)
[2022-10-13 19:00] LABS: ALKALINE PHOSPHATASE 88 U/L (46-116); ALT/SGPT < 9 U/L (7.0-40); AST/SGOT 10 U/L (<34); BILIRUBIN,TOTAL 0.6 MG/DL (0.3-1.2); BLOOD UREA NITROGEN 24 MG/DL (9-23); CARBON DIOXIDE LEVEL 28 MMOL/L (20-31); CHLORIDE LEVEL 108 MMOL/L (98-107); CHOLESTEROL LEVEL 98 MG/DL (<200); CHOLESTEROL RISK RATIO 3.02 (<5); CREATININE FOR GFR 1.14 MG/DL (0.70-1.30); GLOMERULAR FILTRATION RATE > 60.0 (>42); GLUCOSE, FASTING 102 MG/DL (74-106); HDL CHOLESTEROL 32.4 MG/DL (>40); NON-HDL-C 65.6 MG/DL; POTASSIUM SERUM 4.4 MMOL/L (3.5-5.1); SODIUM LEVEL 141 MMOL/L (136-145); TOTAL PROTEIN 5.5 G/DL (5.7-8.2); TRIGLYCERIDES LEVEL 93 MG/DL (<150)
[2022-10-13 19:02] LABS: THYROID STIMULATING HORMONE 3.109 uIU/ML (0.55-4.78)
== END ==
LOC: M SFHCCAPE 08:36
PROVIDERS: ATTEND Internal Medicine Hematology
DX: E78.5 Hyperlipidemia, unspecified (principal)

== ENCOUNTER → 2022-10-15 | Outpatient (CLI) | payer MEDICARE | LOC: M PLAIMG 13:30 | PROVIDERS: ATTEND Urology | DX: N20.0 Calculus of kidney (principal) ==

== ENCOUNTER → 2022-10-28 | Outpatient (CLI) | payer MEDICARE ==
[2022-10-29 17:08] LABS: TESTOSTERONE FREE (DIRECT) 1.2 pg/mL (6.6-18.1)
== END ==
LOC: M PLALAB 07:08
PROVIDERS: ATTEND Specialist
DX: R79.89 Other specified abnormal findings of blood chemistry (principal)

== ENCOUNTER → 2022-11-04 | Outpatient (REF) | payer MEDICARE ==
[2022-11-04 18:34] LABS: HEMATOCRIT 38.9 % (42.0-52.0); HEMOGLOBIN 12.4 g/dl (13.5-17.5); MEAN CORPUSCULAR HEMOGLOBIN 32.7 pg (27.0-33.0); MEAN CORPUSCULAR HGB CONC 31.9 g/dl (32.0-36.5); MEAN CORPUSCULAR VOLUME 102.6 fl (80.0-96.0); PLATELET COUNT, AUTOMATED 306 10^3/uL (150-450); RED BLOOD COUNT 3.79 10^6/uL (4.30-6.10); WHITE BLOOD COUNT 4.4 10^3/uL (4.0-10.0)
[2022-11-04 18:43] LABS: C REACTIVE PROTEIN QUANTITATIV 0.5 MG/DL (<1.0)
[2022-11-04 18:44] LABS: PERCENT SATURATION 28.4 % (19.7-50.0)
[2022-11-04 18:46] LABS: FERRITIN 80.2 NG/ML (10.5-307.3)
[2022-11-06 20:09] LABS: FREE KAPPA LIGHT CHAINS SERUM 30.7 mg/L (3.3-19.4); FREE LAMBDA LIGHT CHAINS SERUM 48.6 mg/L (5.7-26.3); KAPPA/LAMBDA RATIO SERUM 0.63 (0.26-1.65); TRANSFERRIN 147 mg/dL (177-329)
== END ==
LOC: M SFHCPLAZ 07:58
PROVIDERS: ATTEND Internal Medicine Hematology
DX: D53.9 Nutritional anemia, unspecified (principal); Z12.5 Encounter for screening for malignant neoplasm of prostate; E78.00 Pure hypercholesterolemia, unspecified
CPT/HCPCS: 80503; 82550; 82607; 82728; 82747; 83521; 83550; 84155; 84165; 84466; 85027; 85046; 86140; G0103

== ENCOUNTER → 2022-11-04 | Outpatient (REF) | payer MEDICARE ==
[2022-11-04 18:43] LABS: BLOOD UREA NITROGEN 31 MG/DL (9-23); CALCIUM LEVEL 8.1 MG/DL (8.3-10.6); CARBON DIOXIDE LEVEL 28 MMOL/L (20-31); CHLORIDE LEVEL 110 MMOL/L (98-107); GLOMERULAR FILTRATION RATE > 60.0 (>42); GLUCOSE, FASTING 99 MG/DL (74-106); POTASSIUM SERUM 4.5 MMOL/L (3.5-5.1); SODIUM LEVEL 139 MMOL/L (136-145)
== END ==
LOC: M LABDRWCV 17:05
DX: Z01.818 Encounter for other preprocedural examination (principal)

== ENCOUNTER 2022-12-01 11:14 | Outpatient (CLI) | payer MEDICARE ==
[~2022-12-01 11:14] MED LIST changes: -MIDAZOLAM INJ 2MG/2ML VIAL As Ordered ONE; -PROHANCE 279.3MG/ML 15ML VIAL As Ordered ONE
[2022-12-01] MEDS ORDERED: LIDOCAINE 2% 100MG/5ML SDV (FOR ANES.) ONE (11:15)
[2022-12-01] MEDS ORDERED: PHENYLephrine 500MCG 5ML (100MCG/ML) SYRINGE ONE (11:15)
[2022-12-01] MEDS ORDERED: propofoL 200 MG/20 ML VIAL ONE (11:15)
[2022-12-01 11:50] VITALS: TEMP 98.7
[2022-12-01 16:15] VITALS: BP 145/63; O2SAT 98
== END 2022-12-01 16:15 | disposition home or self-care (01) ==
LOC: M RAD 11:14
PROVIDERS: ATTEND Ophthalmology
DX: M25.78 Osteophyte, vertebrae (principal); M54.59 Other low back pain; R20.2 Paresthesia of skin
CPT/HCPCS: 70544; 70553; 72148; A9576; J2250; J2370

== ENCOUNTER → 2022-12-01 | Outpatient (CLI) | payer MEDICARE ==
[~2022-12-01] MED LIST changes: +MIDAZOLAM INJ 2MG/2ML VIAL As Ordered ONE; +PROHANCE 279.3MG/ML 15ML VIAL As Ordered ONE
== END ==
LOC: M RAD 11:16
PROVIDERS: ATTEND Psychiatry & Neurology Neurology
DX: M25.78 Osteophyte, vertebrae (principal); M54.59 Other low back pain; R20.2 Paresthesia of skin

== ENCOUNTER → 2022-12-16 | Outpatient (CLI) | payer MEDICARE ==
[~2022-12-16] MED LIST changes: +ASPI81TA26 PO; +B-650TAB2 PO; +CYMB1CAP5 PO; +FURO20TA2 PO; +FURO40TA2 PO; +LEVO100T5 PO; +LEVO125T4 PO; +LEVO150T7 PO; +PANT40TA29 PO; +POTA1TAB23 PO
[2022-12-16 13:58] LABS: ALKALINE PHOSPHATASE 96 U/L (46-116); ALT/SGPT < 9 U/L (7.0-40); AST/SGOT < 8 U/L (<34); BILIRUBIN,TOTAL 0.6 MG/DL (0.3-1.2); BLOOD UREA NITROGEN 27 MG/DL (9-23); CALCIUM LEVEL 8.1 MG/DL (8.3-10.6); CARBON DIOXIDE LEVEL 28 MMOL/L (20-31); CHLORIDE LEVEL 108 MMOL/L (98-107); CREATININE FOR GFR 1.42 MG/DL (0.70-1.30); GLOMERULAR FILTRATION RATE 51.2 (>42); GLUCOSE, FASTING 115 MG/DL (74-106); POTASSIUM SERUM 4.8 MMOL/L (3.5-5.1); SODIUM LEVEL 142 MMOL/L (136-145); TOTAL PROTEIN 5.3 G/DL (5.7-8.2)
[2022-12-16 14:00] LABS: BASO # 0.1 10^3/uL (0.0-0.2); BASO % 0.9 % (0.0-1.0); EOS # 0.1 10^3/uL (0.0-0.5); EOS % 1.9 % (0.0-3.0); HEMATOCRIT 41.7 % (42.0-52.0); HEMOGLOBIN 13.1 g/dl (13.5-17.5); LYMPH # 1.4 10^3/uL (1.5-5.0); LYMPH % 23.9 % (24.0-44.0); MEAN CORPUSCULAR HEMOGLOBIN 32.7 pg (27.0-33.0); MEAN CORPUSCULAR HGB CONC 31.4 g/dl (32.0-36.5); MONO # 0.4 10^3/uL (0.0-0.8); MONO % 6.9 % (2.0-8.0); NEUTROPHILS # 3.8 10^3/uL (1.5-8.5); NEUTROPHILS % 66.2 % (36.0-66.0); PLATELET COUNT, AUTOMATED 257 10^3/uL (150-450); RED BLOOD COUNT 4.01 10^6/uL (4.30-6.10); WHITE BLOOD COUNT 5.7 10^3/uL (4.0-10.0)
[2022-12-16 14:19] LABS: ERYTHROCYTE SEDIMENTATION RATE 12 mm/hr (0-20)
[2022-12-17 11:09] LABS: ANTINUCLEAR ANTIBODIES DIRECT Negative (Negative); TESTOSTERONE FREE (DIRECT) 2.6 pg/mL (6.6-18.1)
== END ==
LOC: M PLALAB 11:04
PROVIDERS: ATTEND Internal Medicine Hematology
DX: R61 Generalized hyperhidrosis (principal)

== ENCOUNTER → 2022-12-25 | Outpatient (CLI) | payer MEDICARE ==
[~2022-12-25] MED LIST changes: -ASPI81TA26 PO; -B-650TAB2 PO; -CYMB1CAP5 PO; -FURO20TA2 PO; -FURO40TA2 PO; -LEVO100T5 PO; -LEVO125T4 PO; -LEVO150T7 PO; -PANT40TA29 PO; -POTA1TAB23 PO
== END ==
LOC: M RAD 11:53
PROVIDERS: ATTEND Internal Medicine Hematology
DX: G08 Intracranial and intraspinal phlebitis and thrombophlebitis (principal)

== ENCOUNTER → 2022-12-25 | Outpatient (CLI) | payer MEDICARE ==
[2022-12-25 13:41] LABS: BASO # 0.1 10^3/uL (0.0-0.2); BASO % 0.8 % (0.0-1.0); EOS # 0.1 10^3/uL (0.0-0.5); EOS % 1.7 % (0.0-3.0); HEMATOCRIT 40.1 % (42.0-52.0); HEMOGLOBIN 12.8 g/dl (13.5-17.5); LYMPH # 1.4 10^3/uL (1.5-5.0); LYMPH % 22.9 % (24.0-44.0); MEAN CORPUSCULAR HEMOGLOBIN 32.7 pg (27.0-33.0); MEAN CORPUSCULAR HGB CONC 31.9 g/dl (32.0-36.5); MEAN CORPUSCULAR VOLUME 102.3 fl (80.0-96.0); MONO # 0.4 10^3/uL (0.0-0.8); MONO % 6.4 % (2.0-8.0); NEUTROPHILS # 4.1 10^3/uL (1.5-8.5); PLATELET COUNT, AUTOMATED 320 10^3/uL (150-450); RED BLOOD COUNT 3.92 10^6/uL (4.30-6.10)
[2022-12-25 13:53] LABS: DRVV SCREEN 35.2 SEC
[2022-12-25 14:09] LABS: ALBUMIN 2.9 G/DL (3.2-5.2); ALKALINE PHOSPHATASE 83 U/L (46-116); ALT/SGPT < 9 U/L (7.0-40); AST/SGOT < 8 U/L (<34); BILIRUBIN,TOTAL 0.5 MG/DL (0.3-1.2); BLOOD UREA NITROGEN 33 MG/DL (9-23); CALCIUM LEVEL 7.6 MG/DL (8.3-10.6); CARBON DIOXIDE LEVEL 28 MMOL/L (20-31); CHLORIDE LEVEL 110 MMOL/L (98-107); CREATININE FOR GFR 1.31 MG/DL (0.70-1.30); GLOMERULAR FILTRATION RATE 56.2 (>42); GLUCOSE, FASTING 107 MG/DL (74-106); POTASSIUM SERUM 4.7 MMOL/L (3.5-5.1); RHEUMATOID FACTOR QUANT < 3.5 IU/ML (<14); SODIUM LEVEL 142 MMOL/L (136-145); TOTAL PROTEIN 5.1 G/DL (5.7-8.2)
[2022-12-25 14:10] LABS: FOLATE 8.2 NG/ML (>5.4); THYROID STIMULATING HORMONE 3.816 uIU/ML (0.55-4.78); VITAMIN B12 LEVEL 454 PG/ML (211-911)
[2022-12-25 14:19] LABS: ERYTHROCYTE SEDIMENTATION RATE 6 mm/hr (0-20)
[2022-12-25 14:37] LABS: PTT LUPUS TYPE ANTICOAG SCREEN 0.9 (0-1.2)
[2022-12-30 04:07] LABS: ANTINUCLEAR ANTIBODIES DIRECT Negative (Negative); IMMUNOTYPING SERUM IGA SO 391 mg/dL (61-437); IMMUNOTYPING SERUM IGM SO 65 mg/dL (15-143); IgG P18 AB Absent (.); IgG P23 AB Absent (.); IgG P28 AB Absent (.); IgG P30 AB Absent (.); IgG P39 AB Absent (.); IgG P41 AB Absent (.); IgG P45 AB Absent (.); IgG P66 AB Absent (.); IgG P93 AB Absent (.); IgM P23 AB Absent (.); IgM P39 AB Absent (.); IgM P41 AB Absent (.); LYME IgG WB INTERPRETATION Negative (.); LYME IgM WB INTERPRETATION Negative (.); VITAMIN B1 LEVEL WHOLE BLOOD 147.2 nmol/L (66.5-200.0); VITAMIN B6,PYRIDOXAL PHOSPHATE 1.5 ug/L (3.4-65.2); VITAMIN E(ALPHA TOCOPHEROL) 9.5 mg/L (9.0-29.0); VITAMIN E(GAMMA TOCOPHEROL) 1.9 mg/L (0.5-4.9)
== END ==
LOC: M LAB 11:56
PROVIDERS: ATTEND Psychiatry & Neurology Neurology
DX: G62.9 Polyneuropathy, unspecified (principal); G08 Intracranial and intraspinal phlebitis and thrombophlebitis; Z79.899 Other long term (current) drug therapy

== ENCOUNTER → 2022-12-30 | Outpatient (CLI) | payer MEDICARE ==
[2022-12-30 09:55] VITALS: TEMP 96.7
[2022-12-30 10:32] LABS: INR 1.09; PROTHROMBIN TIME 14.3 SECONDS (12.5-14.5)
[2022-12-30 10:33] LABS: PARTIAL THROMBOPLASTIN TIME 31.1 SECONDS (24.8-34.2)
[2022-12-30 13:00] VITALS: BP 148/68; O2SAT 100
[2022-12-30 13:00] LABS: COLOR, CSF COLORLESS (COLORLESS); CSF TUBE# CELL CNT TUBE 1
[2022-12-30 13:01] LABS: APPEARANCE, CSF CLEAR (CLEAR)
[2022-12-30 13:19] LABS: CSF TUBE# TP TUBE 1; TOTAL PROTEIN,CSF 94.6 MG/DL (15-45)
[2022-12-30 13:22] LABS: CSF TUBE# GLU TUBE 1
== END ==
LOC: M IRPRO 09:43
PROVIDERS: ATTEND Ophthalmology
DX: H02.849 Edema of unspecified eye, unspecified eyelid (principal)

== ENCOUNTER 2023-01-05 12:16 | Inpatient (IN) | payer MEDICARE ==
[~2023-01-05] VITALS: Ht 177.8 cm; Wt 79.8 kg
[2023-01-05 13:38] LABS: BASO # 0.1 10^3/uL (0.0-0.2); BASO % 0.7 % (0.0-1.0); EOS # 0.1 10^3/uL (0.0-0.5); HEMATOCRIT 40.6 % (42.0-52.0); HEMOGLOBIN 13.2 g/dl (13.5-17.5); LYMPH # 1.2 10^3/uL (1.5-5.0); LYMPH % 17.6 % (24.0-44.0); MEAN CORPUSCULAR HEMOGLOBIN 32.4 pg (27.0-33.0); MEAN CORPUSCULAR HGB CONC 32.5 g/dl (32.0-36.5); MEAN CORPUSCULAR VOLUME 99.5 fl (80.0-96.0); MONO # 0.5 10^3/uL (0.0-0.8); MONO % 6.6 % (2.0-8.0); NEUTROPHILS # 5.1 10^3/uL (1.5-8.5); PLATELET COUNT, AUTOMATED 198 10^3/uL (150-450); RED BLOOD COUNT 4.08 10^6/uL (4.30-6.10); WHITE BLOOD COUNT 6.9 10^3/uL (4.0-10.0)
[2023-01-05 14:05] LABS: ALBUMIN 2.8 G/DL (3.2-5.2); ALKALINE PHOSPHATASE 83 U/L (46-116); ALT/SGPT < 9 U/L (7.0-40); AST/SGOT < 8 U/L (<34); BILIRUBIN,DIRECT 0.2 MG/DL (<0.4); BILIRUBIN,TOTAL 0.6 MG/DL (0.3-1.2); BLOOD UREA NITROGEN 26 MG/DL (9-23); CALCIUM LEVEL 8.1 MG/DL (8.3-10.6); CARBON DIOXIDE LEVEL 26 MMOL/L (20-31); CHLORIDE LEVEL 106 MMOL/L (98-107); CK-MB VALUE MASS 1.2 NG/ML (<3.6); CREATININE FOR GFR 1.39 MG/DL (0.70-1.30); GLOMERULAR FILTRATION RATE 52.5 (>42); GLUCOSE, FASTING 90 MG/DL (74-106); POTASSIUM SERUM 4.7 MMOL/L (3.5-5.1); SODIUM LEVEL 136 MMOL/L (136-145); TOTAL PROTEIN 5.1 G/DL (5.7-8.2)
[2023-01-05 14:06] LABS: THYROID STIMULATING HORMONE 7.102 uIU/ML (0.55-4.78)
[2023-01-05 14:07] LABS: FREE T4 0.84 NG/DL (0.89-1.76)
[2023-01-05 14:11] LABS: CPK CREATINE PHOSPHOKINASE 41 U/L (46-171); MB/CK RELATIVE INDEX 2.92 (< OR =4)
[2023-01-05] MEDS ORDERED: FUROSEMIDE 40MG/4ML VIAL IV ONE (15:00)
[2023-01-05] MEDS ORDERED: HOME MED LIST COMPLETE! XX SCH (15:40)
[2023-01-05] MEDS ORDERED: ASPI81TA26 PO (15:48)
[2023-01-05] MEDS ORDERED: POTA1TAB23 PO (15:48)
[2023-01-05] MEDS ORDERED: LEVO100T5 PO (15:48)
[2023-01-05] MEDS ORDERED: CYMB1CAP5 PO (15:48)
[2023-01-05] MEDS ORDERED: FURO20TA2 PO (15:48)
[2023-01-05 16:36] LABS: RSV AMPLIFICATION NEGATIVE (NEGATIVE)
[2023-01-05 21:27] VITALS: BP 155/84; TEMP 97.9; O2SAT 98
[2023-01-06 05:36] VITALS: BP 132/71; TEMP 98.1; O2SAT 92
[2023-01-06] MEDS ORDERED: LEVOTHYROXINE 125MCG TABLET (0.125MG) PO SCH (06:00)
[2023-01-06 08:17] LABS: HEMATOCRIT 37.8 % (42.0-52.0); HEMOGLOBIN 12.7 g/dl (13.5-17.5); MEAN CORPUSCULAR HEMOGLOBIN 33.1 pg (27.0-33.0); MEAN CORPUSCULAR HGB CONC 33.6 g/dl (32.0-36.5); MEAN CORPUSCULAR VOLUME 98.4 fl (80.0-96.0); PLATELET COUNT, AUTOMATED 187 10^3/uL (150-450); RED BLOOD COUNT 3.84 10^6/uL (4.30-6.10); WHITE BLOOD COUNT 5.2 10^3/uL (4.0-10.0)
[2023-01-06 08:38] LABS: ALBUMIN 2.4 G/DL (3.2-5.2); ALKALINE PHOSPHATASE 75 U/L (46-116); ALT/SGPT < 9 U/L (7.0-40); AST/SGOT < 8 U/L (<34); BILIRUBIN,TOTAL 0.6 MG/DL (0.3-1.2); BLOOD UREA NITROGEN 24 MG/DL (9-23); CALCIUM LEVEL 7.8 MG/DL (8.3-10.6); CARBON DIOXIDE LEVEL 26 MMOL/L (20-31); CHLORIDE LEVEL 106 MMOL/L (98-107); CREATININE FOR GFR 1.35 MG/DL (0.70-1.30); GLOMERULAR FILTRATION RATE 54.3 (>42); GLUCOSE, FASTING 116 MG/DL (74-106); POTASSIUM SERUM 4.3 MMOL/L (3.5-5.1); SODIUM LEVEL 139 MMOL/L (136-145); TOTAL PROTEIN 4.5 G/DL (5.7-8.2)
[2023-01-06] MEDS ORDERED: DULoxetine 30MG CAPSULE (CYMBALTA) PO SCH (09:00)
[2023-01-06] MEDS ORDERED: ENOXAPARIN 40MG/0.4ML SYRINGE (J1650 PER 10MG) SC SCH (09:00)
[2023-01-06] MEDS ORDERED: ASPIRIN 81MG ENTERIC TABLET PO SCH (09:00)
[2023-01-06] MEDS ORDERED: LEVO125T4 PO (14:14)
== END 2023-01-06 15:25 | DRG 552 ==
LOC: M ED 12:16 → M ED INP 17:04 → M MS5PR 21:27
PROVIDERS: ADMIT Family Medicine; ATTEND Family Medicine
DX: M51.37 Other intervertebral disc degeneration, lumbosacral region (principal); R73.09 Other abnormal glucose; E78.00 Pure hypercholesterolemia, unspecified; G47.33 Obstructive sleep apnea (adult) (pediatric); I27.20 Pulmonary hypertension, unspecified; E03.9 Hypothyroidism, unspecified; E53.8 Deficiency of other specified B group vitamins; R26.89 Other abnormalities of gait and mobility; G62.9 Polyneuropathy, unspecified; R60.0 Localized edema; M47.9 Spondylosis, unspecified; M54.16 Radiculopathy, lumbar region; Z88.8 Allergy status to other drugs, medicaments and biological substances; Z79.899 Other long term (current) drug therapy; Z98.42 Cataract extraction status, left eye; Z79.890 Hormone replacement therapy; Z79.82 Long term (current) use of aspirin; Z98.41 Cataract extraction status, right eye

== ENCOUNTER 2023-01-06 15:35 | Inpatient (IN) | payer MEDICARE ==
[~2023-01-06] VITALS: Ht 177.8 cm; Wt 86.1 kg
[2023-01-06 15:35] VITALS: BP 156/79; TEMP 98.2
[~2023-01-06 15:35] MED LIST changes: +ASPI81TA26 PO; +CYMB1CAP5 PO; +FURO20TA2 PO; +LEVO100T5 PO; +LEVO125T4 PO; +POTA1TAB23 PO
[2023-01-06] MEDS ORDERED: BISACODYL 10MG SUPP PR PRN (16:10)
[2023-01-06] MEDS ORDERED: ACETAMINOPHEN TAB 650MG DOSE (2X325MG) PO PRN (16:10)
[2023-01-06] MEDS: REMEDY PHYTOPLEX Z-GUARD PASTE 113GM TUBE (FROM STOREROOM PRODUCT) TOP SCH ×2 (17:42→21:00)
[2023-01-06] MEDS: PANTOPRAZOLE 40MG TAB (PROTONIX) PO SCH (17:42)
[2023-01-06] MEDS: PYRIDOXINE 50 MG TAB PO SCH (17:42)
[2023-01-06 20:00] VITALS: BP 162/75; TEMP 97.8; O2SAT 98
[2023-01-06] MEDS: SENNA 8.6 MG TAB (SENOKOT) PO SCH (20:05)
[2023-01-06] MEDS: DOCUSATE SODIUM 100MG CAPSULE PO SCH (20:06)
[2023-01-07] MEDS: LEVOTHYROXINE 150MCG TABLET (0.15MG) PO SCH (05:08)
[2023-01-07 06:00] VITALS: BP 130/80; TEMP 97.7; O2SAT 95
[2023-01-07] MEDS ORDERED: LEVOTHYROXINE 125MCG TABLET (0.125MG) PO SCH (06:00)
[2023-01-07 06:18] LABS: BASO % 0.8 % (0.0-1.0); EOS # 0.1 10^3/uL (0.0-0.5); EOS % 1.7 % (0.0-3.0); HEMOGLOBIN 12.5 g/dl (13.5-17.5); LYMPH # 1.4 10^3/uL (1.5-5.0); LYMPH % 29.8 % (24.0-44.0); MEAN CORPUSCULAR HGB CONC 33.8 g/dl (32.0-36.5); MEAN CORPUSCULAR VOLUME 97.6 fl (80.0-96.0); MONO # 0.4 10^3/uL (0.0-0.8); MONO % 8.6 % (2.0-8.0); NEUTROPHILS # 2.8 10^3/uL (1.5-8.5); NEUTROPHILS % 58.9 % (36.0-66.0); PLATELET COUNT, AUTOMATED 179 10^3/uL (150-450); RED BLOOD COUNT 3.79 10^6/uL (4.30-6.10); WHITE BLOOD COUNT 4.8 10^3/uL (4.0-10.0)
[2023-01-07 06:52] LABS: ALBUMIN 2.4 G/DL (3.2-5.2); ALKALINE PHOSPHATASE 72 U/L (46-116); ALT/SGPT < 9 U/L (7.0-40); AST/SGOT < 8 U/L (<34); BILIRUBIN,TOTAL 0.6 MG/DL (0.3-1.2); BLOOD UREA NITROGEN 23 MG/DL (9-23); CALCIUM LEVEL 7.9 MG/DL (8.3-10.6); CARBON DIOXIDE LEVEL 27 MMOL/L (20-31); CHLORIDE LEVEL 104 MMOL/L (98-107); CREATININE FOR GFR 1.29 MG/DL (0.70-1.30); GLOMERULAR FILTRATION RATE 57.2 (>42); GLUCOSE, FASTING 84 MG/DL (74-106); POTASSIUM SERUM 4.4 MMOL/L (3.5-5.1); SODIUM LEVEL 137 MMOL/L (136-145); TOTAL PROTEIN 4.4 G/DL (5.7-8.2)
[2023-01-07] MEDS: REMEDY PHYTOPLEX Z-GUARD PASTE 113GM TUBE (FROM STOREROOM PRODUCT) TOP SCH ×3 (09:00→20:19)
[2023-01-07] MEDS ORDERED: ENOXAPARIN 40MG/0.4ML SYRINGE (J1650 PER 10MG) SC SCH (09:00)
[2023-01-07] MEDS: ASPIRIN 81MG ENTERIC TABLET PO SCH (09:18)
[2023-01-07] MEDS: DULoxetine 30MG CAPSULE (CYMBALTA) PO SCH (09:18)
[2023-01-07] MEDS: DOCUSATE SODIUM 100MG CAPSULE PO SCH ×2 (09:18→20:18)
[2023-01-07] MEDS: PANTOPRAZOLE 40MG TAB (PROTONIX) PO SCH (09:18)
[2023-01-07] MEDS: PYRIDOXINE 50 MG TAB PO SCH (09:19)
[2023-01-07] MEDS: ENOXAPARIN 40MG/0.4ML SYRINGE (J1650 PER 10MG) SC SCH (09:19)
[2023-01-07] MEDS: FUROSEMIDE 40 MG TAB PO SCH (09:19)
[2023-01-07 14:00] VITALS: BP 138/62; TEMP 98; O2SAT 99
[2023-01-07 20:00] VITALS: BP 165/84; TEMP 98.3; O2SAT 99
[2023-01-07] MEDS: SENNA 8.6 MG TAB (SENOKOT) PO SCH (20:18)
[2023-01-08] MEDS: LEVOTHYROXINE 150MCG TABLET (0.15MG) PO SCH (05:42)
[2023-01-08 06:00] VITALS: BP 155/74; TEMP 97.8; O2SAT 98
[2023-01-08 06:32] LABS: BASO # 0.1 10^3/uL (0.0-0.2); BASO % 1.1 % (0.0-1.0); EOS # 0.1 10^3/uL (0.0-0.5); HEMOGLOBIN 12.9 g/dl (13.5-17.5); LYMPH # 1.3 10^3/uL (1.5-5.0); LYMPH % 29.5 % (24.0-44.0); MEAN CORPUSCULAR HEMOGLOBIN 32.9 pg (27.0-33.0); MEAN CORPUSCULAR HGB CONC 33.1 g/dl (32.0-36.5); MEAN CORPUSCULAR VOLUME 99.5 fl (80.0-96.0); MONO # 0.4 10^3/uL (0.0-0.8); MONO % 8.1 % (2.0-8.0); NEUTROPHILS # 2.6 10^3/uL (1.5-8.5); NEUTROPHILS % 59.1 % (36.0-66.0); PLATELET COUNT, AUTOMATED 165 10^3/uL (150-450); RED BLOOD COUNT 3.92 10^6/uL (4.30-6.10); WHITE BLOOD COUNT 4.5 10^3/uL (4.0-10.0)
[2023-01-08 06:48] LABS: CALCIUM LEVEL 7.2 MG/DL (8.3-10.6); CREATININE FOR GFR 1.35 MG/DL (0.70-1.30); GLOMERULAR FILTRATION RATE 54.3 (>42); POTASSIUM SERUM 4.4 MMOL/L (3.5-5.1)
[2023-01-08] MEDS: ASPIRIN 81MG ENTERIC TABLET PO SCH (09:40)
[2023-01-08] MEDS: DULoxetine 30MG CAPSULE (CYMBALTA) PO SCH (09:40)
[2023-01-08] MEDS: PANTOPRAZOLE 40MG TAB (PROTONIX) PO SCH (09:41)
[2023-01-08] MEDS: DOCUSATE SODIUM 100MG CAPSULE PO SCH ×2 (09:41→19:41)
[2023-01-08] MEDS: FUROSEMIDE 40 MG TAB PO SCH (09:41)
[2023-01-08] MEDS: ENOXAPARIN 40MG/0.4ML SYRINGE (J1650 PER 10MG) SC SCH (09:41)
[2023-01-08] MEDS: PYRIDOXINE 50 MG TAB PO SCH (09:41)
[2023-01-08] MEDS: REMEDY PHYTOPLEX Z-GUARD PASTE 113GM TUBE (FROM STOREROOM PRODUCT) TOP SCH ×3 (09:43→19:35)
[2023-01-08 10:00] VITALS: BP 140/71
[2023-01-08] MEDS ORDERED: **hydrALAZINE HCL** 25 MG TAB PO ONE (10:00)
[2023-01-08 14:00] VITALS: BP 140/80; TEMP 97.2; O2SAT 97
[2023-01-08] MEDS: **hydrALAZINE HCL** 25 MG TAB PO SCH ×2 (14:54→21:20)
[2023-01-08] MEDS: SENNA 8.6 MG TAB (SENOKOT) PO SCH (19:41)
[2023-01-08 20:00] VITALS: BP 140/70; TEMP 97.3; O2SAT 100
[2023-01-09] MEDS: LEVOTHYROXINE 150MCG TABLET (0.15MG) PO SCH (05:38)
[2023-01-09] MEDS: **hydrALAZINE HCL** 25 MG TAB PO SCH ×3 (05:39→20:39)
[2023-01-09 05:52] VITALS: BP 145/80; TEMP 97.7; O2SAT 95
[2023-01-09] MEDS: REMEDY PHYTOPLEX Z-GUARD PASTE 113GM TUBE (FROM STOREROOM PRODUCT) TOP SCH ×3 (09:00→20:39)
[2023-01-09] MEDS: DULoxetine 30MG CAPSULE (CYMBALTA) PO SCH (09:06)
[2023-01-09] MEDS: DOCUSATE SODIUM 100MG CAPSULE PO SCH ×2 (09:06→20:39)
[2023-01-09] MEDS: ENOXAPARIN 40MG/0.4ML SYRINGE (J1650 PER 10MG) SC SCH (09:07)
[2023-01-09] MEDS: ASPIRIN 81MG ENTERIC TABLET PO SCH (09:07)
[2023-01-09] MEDS: PANTOPRAZOLE 40MG TAB (PROTONIX) PO SCH (09:07)
[2023-01-09] MEDS: PYRIDOXINE 50 MG TAB PO SCH (09:07)
[2023-01-09] MEDS: FUROSEMIDE 40 MG TAB PO SCH (09:07)
[2023-01-09 14:00] VITALS: BP 135/79; TEMP 98.6; O2SAT 99
[2023-01-09 20:00] VITALS: BP 160/80; TEMP 98.5; O2SAT 95
[2023-01-09] MEDS: SENNA 8.6 MG TAB (SENOKOT) PO SCH (20:39)
[2023-01-10] MEDS: LEVOTHYROXINE 150MCG TABLET (0.15MG) PO SCH (05:58)
[2023-01-10] MEDS: **hydrALAZINE HCL** 25 MG TAB PO SCH ×3 (05:59→20:19)
[2023-01-10 06:00] VITALS: BP 142/80; TEMP 97.8; O2SAT 99
[2023-01-10] MEDS: DULoxetine 30MG CAPSULE (CYMBALTA) PO SCH (08:55)
[2023-01-10] MEDS: ASPIRIN 81MG ENTERIC TABLET PO SCH (08:55)
[2023-01-10] MEDS: FUROSEMIDE 40 MG TAB PO SCH (08:56)
[2023-01-10] MEDS: PANTOPRAZOLE 40MG TAB (PROTONIX) PO SCH (08:56)
[2023-01-10] MEDS: ENOXAPARIN 40MG/0.4ML SYRINGE (J1650 PER 10MG) SC SCH (08:56)
[2023-01-10] MEDS: REMEDY PHYTOPLEX Z-GUARD PASTE 113GM TUBE (FROM STOREROOM PRODUCT) TOP SCH ×3 (08:56→20:15)
[2023-01-10] MEDS: PYRIDOXINE 50 MG TAB PO SCH (08:56)
[2023-01-10] MEDS: DOCUSATE SODIUM 100MG CAPSULE PO SCH ×2 (09:00→20:16)
[2023-01-10 14:00] VITALS: BP 112/58; TEMP 97.6; O2SAT 98
[2023-01-10 20:00] VITALS: BP 150/80; TEMP 98.2; O2SAT 96
[2023-01-10] MEDS: SENNA 8.6 MG TAB (SENOKOT) PO SCH (20:16)
[2023-01-11] MEDS: LEVOTHYROXINE 150MCG TABLET (0.15MG) PO SCH (05:34)
[2023-01-11] MEDS: **hydrALAZINE HCL** 25 MG TAB PO SCH ×3 (05:35→20:22)
[2023-01-11 06:00] VITALS: BP 144/71; TEMP 97.9; O2SAT 99
[2023-01-11] MEDS: REMEDY PHYTOPLEX Z-GUARD PASTE 113GM TUBE (FROM STOREROOM PRODUCT) TOP SCH ×3 (08:10→20:21)
[2023-01-11] MEDS: PYRIDOXINE 50 MG TAB PO SCH (08:37)
[2023-01-11] MEDS: DOCUSATE SODIUM 100MG CAPSULE PO SCH ×3 (08:37→21:00)
[2023-01-11] MEDS: ASPIRIN 81MG ENTERIC TABLET PO SCH (08:37)
[2023-01-11] MEDS: PANTOPRAZOLE 40MG TAB (PROTONIX) PO SCH (08:37)
[2023-01-11] MEDS: DULoxetine 30MG CAPSULE (CYMBALTA) PO SCH (08:37)
[2023-01-11] MEDS: FUROSEMIDE 40 MG TAB PO SCH (08:38)
[2023-01-11] MEDS: ENOXAPARIN 40MG/0.4ML SYRINGE (J1650 PER 10MG) SC SCH (08:38)
[2023-01-11] MEDS ORDERED: CYMB1CAP5 PO (11:08)
[2023-01-11] MEDS ORDERED: PANT40TA29 PO (11:08)
[2023-01-11] MEDS ORDERED: FURO40TA2 PO (11:08)
[2023-01-11] MEDS ORDERED: LEVO150T7 PO (11:08)
[2023-01-11] MEDS ORDERED: B-650TAB2 PO (11:08)
[2023-01-11 11:29] LABS: BASO % 0.6 % (0.0-1.0); EOS # 0.1 10^3/uL (0.0-0.5); EOS % 0.9 % (0.0-3.0); HEMOGLOBIN 13.3 g/dl (13.5-17.5); LYMPH # 1.4 10^3/uL (1.5-5.0); LYMPH % 21.6 % (24.0-44.0); MEAN CORPUSCULAR HEMOGLOBIN 32.8 pg (27.0-33.0); MEAN CORPUSCULAR HGB CONC 32.4 g/dl (32.0-36.5); MONO # 0.5 10^3/uL (0.0-0.8); MONO % 7.5 % (2.0-8.0); NEUTROPHILS # 4.5 10^3/uL (1.5-8.5); NEUTROPHILS % 69.1 % (36.0-66.0); PLATELET COUNT, AUTOMATED 156 10^3/uL (150-450); RED BLOOD COUNT 4.06 10^6/uL (4.30-6.10); WHITE BLOOD COUNT 6.5 10^3/uL (4.0-10.0)
[2023-01-11 14:00] VITALS: BP 155/74; TEMP 97.8; O2SAT 98
[2023-01-11 20:00] VITALS: BP 140/100; TEMP 97; O2SAT 97
[2023-01-11 20:48] VITALS: BP 126/72
[2023-01-11] MEDS: SENNA 8.6 MG TAB (SENOKOT) PO SCH (21:00)
[2023-01-12] MEDS: LEVOTHYROXINE 150MCG TABLET (0.15MG) PO SCH (05:36)
[2023-01-12 05:37] VITALS: BP 140/68
[2023-01-12] MEDS: **hydrALAZINE HCL** 25 MG TAB PO SCH (05:37)
[2023-01-12 06:00] VITALS: BP 140/68; TEMP 98.1; O2SAT 97
[2023-01-12] MEDS: DOCUSATE SODIUM 100MG CAPSULE PO SCH (08:00)
[2023-01-12] MEDS: REMEDY PHYTOPLEX Z-GUARD PASTE 113GM TUBE (FROM STOREROOM PRODUCT) TOP SCH (08:01)
[2023-01-12] MEDS: FUROSEMIDE 40 MG TAB PO SCH (08:36)
[2023-01-12] MEDS: PYRIDOXINE 50 MG TAB PO SCH (08:36)
[2023-01-12] MEDS: ASPIRIN 81MG ENTERIC TABLET PO SCH (08:36)
[2023-01-12] MEDS: PANTOPRAZOLE 40MG TAB (PROTONIX) PO SCH (08:36)
[2023-01-12] MEDS: DULoxetine 30MG CAPSULE (CYMBALTA) PO SCH (08:36)
== END 2023-01-12 13:35 | disposition home or self-care (01) | DRG 552 ==
LOC: M PM&R 15:35
PROVIDERS: ADMIT Physical Medicine & Rehabilitation; ATTEND Physical Medicine & Rehabilitation
DX: M51.17 Intervertebral disc disorders with radiculopathy, lumbosacral region (principal); I13.0 Hypertensive heart and chronic kidney disease with heart failure and stage 1 through stage 4 chronic kidney disease, or unspecified chronic kidney disease; G63 Polyneuropathy in diseases classified elsewhere; E03.9 Hypothyroidism, unspecified; I50.9 Heart failure, unspecified; G47.33 Obstructive sleep apnea (adult) (pediatric); I27.20 Pulmonary hypertension, unspecified; M21.379 Foot drop, unspecified foot; R26.89 Other abnormalities of gait and mobility; Z74.09 Other reduced mobility; Z74.1 Need for assistance with personal care; Z98.41 Cataract extraction status, right eye; Z98.42 Cataract extraction status, left eye; D64.9 Anemia, unspecified; N18.30 Chronic kidney disease, stage 3 unspecified; Z79.82 Long term (current) use of aspirin; Z79.890 Hormone replacement therapy; Z79.899 Other long term (current) drug therapy; Z88.8 Allergy status to other drugs, medicaments and biological substances; E78.5 Hyperlipidemia, unspecified; E55.9 Vitamin D deficiency, unspecified; R60.0 Localized edema; E29.1 Testicular hypofunction; E74.39 Other disorders of intestinal carbohydrate absorption; R63.4 Abnormal weight loss

== ENCOUNTER 2023-02-02 12:28 | Outpatient (RCR) | payer MEDICARE ==
[~2023-02-02 12:28] MED LIST changes: +B-650TAB2 PO; +FURO40TA2 PO; +LEVO150T7 PO; +PANT40TA29 PO
[2023-02-24] MEDS ORDERED: TEST75GE TOP (12:39)
[2023-02-24] MEDS ORDERED: OCUV1CAP4 PO (12:39)
[2023-02-24] MEDS ORDERED: METO1TAB32 PO (12:39)
[2023-02-24] MEDS ORDERED: FURO20TA2 PO (12:39)
[2023-02-24] MEDS ORDERED: NOXI1TAB PO (12:39)
[2023-02-24] MEDS ORDERED: TYLE650T38 PO (18:34)
== END 2023-02-25 ==
LOC: M PT 12:28
PROVIDERS: ATTEND Internal Medicine Hematology
DX: R60.0 Localized edema (principal)

== ENCOUNTER → 2023-02-10 | Outpatient (REF) | payer MEDICARE ==
[2023-02-10 17:54] LABS: BASO # 0.1 10^3/uL (0.0-0.2); BASO % 0.8 % (0.0-1.0); EOS # 0.1 10^3/uL (0.0-0.5); EOS % 0.8 % (0.0-3.0); HEMATOCRIT 37.9 % (42.0-52.0); HEMOGLOBIN 12.1 g/dl (13.5-17.5); LYMPH # 1.6 10^3/uL (1.5-5.0); LYMPH % 20.8 % (24.0-44.0); MEAN CORPUSCULAR HEMOGLOBIN 32.4 pg (27.0-33.0); MEAN CORPUSCULAR HGB CONC 31.9 g/dl (32.0-36.5); MEAN CORPUSCULAR VOLUME 101.6 fl (80.0-96.0); MONO # 0.6 10^3/uL (0.0-0.8); MONO % 7.7 % (2.0-8.0); NEUTROPHILS # 5.4 10^3/uL (1.5-8.5); NEUTROPHILS % 69.6 % (36.0-66.0); PLATELET COUNT, AUTOMATED 173 10^3/uL (150-450); RED BLOOD COUNT 3.73 10^6/uL (4.30-6.10); WHITE BLOOD COUNT 7.8 10^3/uL (4.0-10.0)
== END ==
LOC: M SFHCCAPE 10:41
PROVIDERS: ATTEND Physician Assistant
DX: E29.1 Testicular hypofunction (principal)
CPT/HCPCS: 36415; 85025; G0103

== ENCOUNTER → 2023-02-17 | Outpatient (CLI) | payer MEDICARE ==
[~2023-02-17] MED LIST changes: +COLA100C5 PO; +DULO30CA9 PO; +FURO80TA2 PO; +METO1TAB32 PO; +MIRA1POW3 PO; +NOXI1TAB PO; +OCUVTAB4 PO; +PYRI50TA41 PO; +SUCR1ORA PO; +SYNT150T PO; +TEST75GE TOP; +TYLE650T38 PO
== END ==
LOC: M SOG 07:52
PROVIDERS: ATTEND Orthopaedic Surgery
DX: M47.816 Spondylosis without myelopathy or radiculopathy, lumbar region (principal)

== ENCOUNTER 2023-03-03 18:30 | Observation (INO) | payer MEDICARE ==
[~2023-03-03] VITALS: Ht 177.8 cm; Wt 76.4 kg
[~2023-03-03 18:30] MED LIST changes: -COLA100C5 PO; -DULO30CA9 PO; -MIRA1POW3 PO; -OCUVTAB4 PO; -PYRI50TA41 PO; -SUCR1ORA PO; -SYNT150T PO
[2023-03-03 21:20] LABS: VENOUS PH 7.353 UNITS (7.330-7.430)
[2023-03-03 21:21] LABS: VENOUS BASE EXCESS -1.6 (-2.0-2.0); VENOUS HCO3 24.1 MMOL/L (23.0-27.0); VENOUS O2 SATURATION 92.7 % (60.0-80.0); VENOUS PARTIAL PRESSURE CO2 44.3 mmHg (38.0-50.0); VENOUS PARTIAL PRESSURE O2 68.6 mmHg (30.0-50.0); VENOUS TOTAL CO2 25.4 MMOL/L (24.0-28.0)
[2023-03-03 21:24] LABS: BASO % 0.1 % (0.0-1.0); EOS # 0.1 10^3/uL (0.0-0.5); EOS % 0.7 % (0.0-3.0); HEMATOCRIT 35.3 % (42.0-52.0); HEMOGLOBIN 11.7 g/dl (13.5-17.5); LYMPH # 1.2 10^3/uL (1.5-5.0); LYMPH % 7.3 % (24.0-44.0); MEAN CORPUSCULAR HEMOGLOBIN 31.9 pg (27.0-33.0); MEAN CORPUSCULAR HGB CONC 33.1 g/dl (32.0-36.5); MEAN CORPUSCULAR VOLUME 96.2 fl (80.0-96.0); MONO # 1.5 10^3/uL (0.0-0.8); MONO % 8.7 % (2.0-8.0); NEUTROPHILS % 82.6 % (36.0-66.0); PLATELET COUNT, AUTOMATED 165 10^3/uL (150-450); RED BLOOD COUNT 3.67 10^6/uL (4.30-6.10)
[2023-03-03 21:35] LABS: INR 1.33; PARTIAL THROMBOPLASTIN TIME 29.7 SECONDS (24.8-34.2); PROTHROMBIN TIME 16.1 SECONDS (12.5-14.5)
[2023-03-03 21:48] LABS: CK-MB VALUE MASS 1.5 NG/ML (<3.6)
[2023-03-03 21:49] LABS: ALBUMIN 2.7 G/DL (3.2-5.2); BILIRUBIN,DIRECT 0.4 MG/DL (<0.4); BILIRUBIN,TOTAL 0.8 MG/DL (0.3-1.2); CALCIUM LEVEL 8.1 MG/DL (8.3-10.6); CREATININE FOR GFR 1.5 MG/DL (0.70-1.30); GLOMERULAR FILTRATION RATE 48.1 (>42); POTASSIUM SERUM 4.1 MMOL/L (3.5-5.1); TOTAL PROTEIN 5.1 G/DL (5.7-8.2)
[2023-03-03 21:50] LABS: MB/CK RELATIVE INDEX 4.83 (< OR =4)
[2023-03-03 21:59] LABS: RSV AMPLIFICATION NEGATIVE (NEGATIVE)
[2023-03-03] MEDS ORDERED: ISOVUE-370 76% 100ML VIAL As Ordered ONE (22:02)
[2023-03-03 23:55] LABS: CK-MB VALUE MASS < 1.0 NG/ML (<3.6)
[2023-03-04] MEDS ORDERED: SUCRALFATE SUSP 1GM/10ML UD PO ONE
[2023-03-04 00:01] LABS: CPK CREATINE PHOSPHOKINASE 22 U/L (46-171); MB/CK RELATIVE INDEX 4.54 (< OR =4)
[2023-03-04 03:23] VITALS: BP 130/70; TEMP 99.6; O2SAT 97
[2023-03-04] MEDS ORDERED: OCUVTAB4 PO (03:32)
[2023-03-04] MEDS ORDERED: VITA100093 PO (03:32)
[2023-03-04] MEDS ORDERED: FURO80TA2 PO (03:32)
[2023-03-04] MEDS ORDERED: DULO30CA9 PO (03:32)
[2023-03-04] MEDS ORDERED: PYRI50TA41 PO (03:32)
[2023-03-04] MEDS ORDERED: SYNT150T PO (03:32)
[2023-03-04] MEDS ORDERED: HOME MED LIST COMPLETE! XX SCH (03:35)
[2023-03-04] MEDS ORDERED: LEVOTHYROXINE 150MCG TABLET (0.15MG) PO SCH (06:00)
[2023-03-04] MEDS: HEPARIN SOD (PORCINE) 5000UNITS/ML 1ML VIAL/SYRINGE SC SCH ×2 (08:53→20:55)
[2023-03-04] MEDS: PYRIDOXINE 50 MG TAB PO SCH (08:54)
[2023-03-04] MEDS: PANTOPRAZOLE 40MG VIAL IV SCH ×2 (08:54→20:54)
[2023-03-04] MEDS: DULoxetine 30MG CAPSULE (CYMBALTA) PO SCH (08:54)
[2023-03-04] MEDS: SUCRALFATE SUSP 1GM/10ML UD PO SCH ×4 (08:55→20:54)
[2023-03-04 09:30] LABS: HEMATOCRIT 30.5 % (42.0-52.0); HEMOGLOBIN 9.9 g/dl (13.5-17.5); MEAN CORPUSCULAR HEMOGLOBIN 31.3 pg (27.0-33.0); MEAN CORPUSCULAR HGB CONC 32.5 g/dl (32.0-36.5); MEAN CORPUSCULAR VOLUME 96.5 fl (80.0-96.0); PLATELET COUNT, AUTOMATED 155 10^3/uL (150-450); RED BLOOD COUNT 3.16 10^6/uL (4.30-6.10); WHITE BLOOD COUNT 11.5 10^3/uL (4.0-10.0)
[2023-03-04] MEDS ORDERED: MIRALAX *UNIT DOSE* 17GM PACKET PO PRN (09:50)
[2023-03-04 09:55] LABS: ALBUMIN 2.3 G/DL (3.2-5.2); BILIRUBIN,TOTAL 0.5 MG/DL (0.3-1.2); CALCIUM LEVEL 7.9 MG/DL (8.3-10.6); CREATININE FOR GFR 1.38 MG/DL (0.70-1.30); GLOMERULAR FILTRATION RATE 52.9 (>42); POTASSIUM SERUM 3.9 MMOL/L (3.5-5.1); TOTAL PROTEIN 4.4 G/DL (5.7-8.2)
[2023-03-04 10:00] VITALS: BP 132/78; TEMP 98.4; O2SAT 97
[2023-03-04] MEDS: DOCUSATE SODIUM 100MG CAPSULE PO SCH ×2 (10:10→20:54)
[2023-03-04] MEDS ORDERED: MIRALAX *UNIT DOSE* 17GM PACKET PO ONE (10:15)
[2023-03-04 14:00] VITALS: BP 132/74; TEMP 98.2; O2SAT 95
[2023-03-04] MEDS ORDERED: SENNA 8.6 MG TAB (SENOKOT) PO SCH (21:00)
[2023-03-04 21:54] VITALS: BP 133/73; TEMP 98.4; O2SAT 96
[2023-03-05 01:46] VITALS: BP 134/74; TEMP 99; O2SAT 95
[2023-03-05 05:49] VITALS: BP 132/72; TEMP 97.1; O2SAT 95
[2023-03-05 05:50] VITALS: TEMP 98.8
[2023-03-05] MEDS ORDERED: LEVOTHYROXINE 150MCG TABLET (0.15MG) PO SCH (06:00)
[2023-03-05 06:13] LABS: HEMATOCRIT 29.5 % (42.0-52.0); HEMOGLOBIN 9.6 g/dl (13.5-17.5); MEAN CORPUSCULAR HEMOGLOBIN 31.9 pg (27.0-33.0); MEAN CORPUSCULAR HGB CONC 32.5 g/dl (32.0-36.5); PLATELET COUNT, AUTOMATED 164 10^3/uL (150-450); RED BLOOD COUNT 3.01 10^6/uL (4.30-6.10); WHITE BLOOD COUNT 11.2 10^3/uL (4.0-10.0)
[2023-03-05 06:30] LABS: ALBUMIN 2.3 G/DL (3.2-5.2); BILIRUBIN,TOTAL 0.5 MG/DL (0.3-1.2); CALCIUM LEVEL 7.5 MG/DL (8.3-10.6); CREATININE FOR GFR 1.26 MG/DL (0.70-1.30); GLOMERULAR FILTRATION RATE 58.8 (>42); POTASSIUM SERUM 3.5 MMOL/L (3.5-5.1); TOTAL PROTEIN 4.4 G/DL (5.7-8.2)
[2023-03-05] MEDS ORDERED: COLA100C5 PO (07:36)
[2023-03-05] MEDS ORDERED: SUCR1ORA PO (07:36)
[2023-03-05] MEDS ORDERED: MIRA1POW3 PO (07:36)
[2023-03-05] MEDS: SUCRALFATE SUSP 1GM/10ML UD PO SCH (09:09)
[2023-03-05] MEDS: DOCUSATE SODIUM 100MG CAPSULE PO SCH (09:09)
[2023-03-05] MEDS: DULoxetine 30MG CAPSULE (CYMBALTA) PO SCH (09:09)
[2023-03-05] MEDS: PANTOPRAZOLE 40MG VIAL IV SCH (09:09)
[2023-03-05] MEDS: PYRIDOXINE 50 MG TAB PO SCH (09:09)
[2023-03-05] MEDS: HEPARIN SOD (PORCINE) 5000UNITS/ML 1ML VIAL/SYRINGE SC SCH (09:09)
== END 2023-03-05 10:53 | disposition home or self-care (01) ==
LOC: M ED 18:30 → M ED INP 18:31 → M MSPAV 03-04 03:23
PROVIDERS: ADMIT Family Medicine; ATTEND Internal Medicine
DX: R10.13 Epigastric pain (principal); R74.8 Abnormal levels of other serum enzymes; D72.829 Elevated white blood cell count, unspecified; Z79.52 Long term (current) use of systemic steroids; K52.9 Noninfective gastroenteritis and colitis, unspecified; K74.60 Unspecified cirrhosis of liver; J90 Pleural effusion, not elsewhere classified; R74.01 Elevation of levels of liver transaminase levels; K76.0 Fatty (change of) liver, not elsewhere classified; R18.8 Other ascites; R16.1 Splenomegaly, not elsewhere classified; I50.813 Acute on chronic right heart failure; I27.29 Other secondary pulmonary hypertension; I34.0 Nonrheumatic mitral (valve) insufficiency; N18.30 Chronic kidney disease, stage 3 unspecified; E43 Unspecified severe protein-calorie malnutrition; G62.9 Polyneuropathy, unspecified; E03.9 Hypothyroidism, unspecified; E53.9 Vitamin B deficiency, unspecified; R53.1 Weakness; Z79.899 Other long term (current) drug therapy; Z79.890 Hormone replacement therapy; Z82.49 Family history of ischemic heart disease and other diseases of the circulatory system; Z83.3 Family history of diabetes mellitus; Z81.1 Family history of alcohol abuse and dependence; Z80.0 Family history of malignant neoplasm of digestive organs; Z87.891 Personal history of nicotine dependence
CPT/HCPCS: 36415; 71045; 74177; 76705; 80048; 80053; 80076; 81001; 82550; 82553; 82803; 83605; 83690; 83735; 84484; 85025; 85027; 85610; 85730; 87040; 87631; 93005; 93041; 96372; 96374; 96376; 99285; C9113; G0378; Q9967

== ENCOUNTER 2023-03-08 16:18 | Outpatient (CLI) | payer MEDICARE ==
[~2023-03-08] VITALS: Ht 177.8 cm; Wt 69.5 kg
[~2023-03-08 16:18] MED LIST changes: +COLA100C5 PO; +DULO30CA9 PO; +MIRA1POW3 PO; +OCUVTAB4 PO; +PYRI50TA41 PO; +SUCR1ORA PO; +SYNT150T PO
[2023-03-08 16:30] VITALS: BP 141/63; O2SAT 96
[2023-03-08] MEDS ORDERED: methylPREDNISolone 500 MG, VIAL MATE ADAPTER 1 EACH in NS 250 ML IV ONE (16:30)
[2023-03-08 17:58] VITALS: BP 174/78; O2SAT 94
== END 2023-03-08 18:00 ==
LOC: M INFU 16:18
PROVIDERS: ATTEND Internal Medicine
DX: G61.81 Chronic inflammatory demyelinating polyneuritis (principal)
CPT/HCPCS: 96365; J2930

== ENCOUNTER → 2023-03-10 | Outpatient (CLI) | payer MEDICARE ==
[2023-03-12 23:07] LABS: TESTOSTERONE FREE (DIRECT) 1.2 pg/mL (6.6-18.1)
== END ==
LOC: M PLALAB 14:06
PROVIDERS: ATTEND Specialist
DX: R79.89 Other specified abnormal findings of blood chemistry (principal)

== ENCOUNTER → 2023-03-10 | Outpatient (CLI) | payer MEDICARE ==
[2023-03-10 16:04] LABS: BASO # 0.1 10^3/uL (0.0-0.2); BASO % 0.3 % (0.0-1.0); EOS # 0.3 10^3/uL (0.0-0.5); EOS % 1.7 % (0.0-3.0); HEMATOCRIT 30.8 % (42.0-52.0); HEMOGLOBIN 9.9 g/dl (13.5-17.5); LYMPH # 2.8 10^3/uL (1.5-5.0); LYMPH % 17.3 % (24.0-44.0); MEAN CORPUSCULAR HGB CONC 32.1 g/dl (32.0-36.5); MEAN CORPUSCULAR VOLUME 99.7 fl (80.0-96.0); MONO # 0.9 10^3/uL (0.0-0.8); MONO % 5.7 % (2.0-8.0); NEUTROPHILS # 12.1 10^3/uL (1.5-8.5); NEUTROPHILS % 74.4 % (36.0-66.0); PLATELET COUNT, AUTOMATED 459 10^3/uL (150-450); RED BLOOD COUNT 3.09 10^6/uL (4.30-6.10); WHITE BLOOD COUNT 16.3 10^3/uL (4.0-10.0)
[2023-03-10 16:24] LABS: ERYTHROCYTE SEDIMENTATION RATE 10 mm/hr (0-20)
[2023-03-10 16:39] LABS: LDH LACTATE DEHYDROGENASE 172 U/L (120-246)
[2023-03-10 16:40] LABS: ALBUMIN 2.5 G/DL (3.2-5.2); ALKALINE PHOSPHATASE 125 U/L (46-116); ALT/SGPT 37 U/L (7.0-40); AST/SGOT 19 U/L (<34); BILIRUBIN,TOTAL 0.3 MG/DL (0.3-1.2); BLOOD UREA NITROGEN 37 MG/DL (9-23); CALCIUM LEVEL 7.8 MG/DL (8.3-10.6); CARBON DIOXIDE LEVEL 30 MMOL/L (20-31); CHLORIDE LEVEL 104 MMOL/L (98-107); CREATININE FOR GFR 1.14 MG/DL (0.70-1.30); GLOMERULAR FILTRATION RATE > 60.0 (>42); GLUCOSE, FASTING 76 MG/DL (74-106); POTASSIUM SERUM 4.8 MMOL/L (3.5-5.1); SODIUM LEVEL 141 MMOL/L (136-145); TOTAL PROTEIN 4.9 G/DL (5.7-8.2)
[2023-03-10 16:41] LABS: THYROID STIMULATING HORMONE 7.728 uIU/ML (0.55-4.78)
[2023-03-10 16:53] LABS: FREE T4 1.08 NG/DL (0.89-1.76)
== END ==
LOC: M PLALAB 14:11
PROVIDERS: ATTEND Internal Medicine Hematology
DX: R53.82 Chronic fatigue, unspecified (principal)

== ENCOUNTER → 2023-03-17 | Outpatient (CLI) | payer MEDICARE ==
[2023-03-17 14:07] LABS: ALBUMIN 2.8 G/DL (3.2-5.2); CALCIUM LEVEL 7.8 MG/DL (8.3-10.6); CREATININE FOR GFR 1.27 MG/DL (0.70-1.30); GLOMERULAR FILTRATION RATE 58.2 (>42); PHOSPHORUS LEVEL 4.4 MG/DL (2.4-5.1); POTASSIUM SERUM 4.7 MMOL/L (3.5-5.1)
== END ==
LOC: M PLALAB 10:04
PROVIDERS: ATTEND Internal Medicine Cardiovascular Disease
DX: I50.32 Chronic diastolic (congestive) heart failure (principal)

== ENCOUNTER 2023-03-30 14:10 | Outpatient (CLI) | payer MEDICARE ==
[~2023-03-30] VITALS: Ht 177.8 cm; Wt 64.5 kg
[2023-03-30 14:10] VITALS: BP 155/83; O2SAT 98
[2023-03-30] MEDS ORDERED: methylPREDNISolone 500 MG, VIAL MATE ADAPTER 1 EACH in NS 250 ML IV ONE (14:30)
[2023-03-30 15:45] VITALS: BP 153/80; O2SAT 99
== END 2023-03-30 15:45 | disposition home or self-care (01) ==
LOC: M INFU 14:10
PROVIDERS: ATTEND Psychiatry & Neurology Neurology
DX: G60.9 Hereditary and idiopathic neuropathy, unspecified (principal)
CPT/HCPCS: 96365; J2930

== ENCOUNTER → 2023-04-05 | Outpatient (REF) | payer MEDICARE ==
[2023-04-05 18:34] LABS: BLOOD UREA NITROGEN 22 MG/DL (9-23); CALCIUM LEVEL 8.2 MG/DL (8.3-10.6); CARBON DIOXIDE LEVEL 30 MMOL/L (20-31); CHLORIDE LEVEL 105 MMOL/L (98-107); CREATININE FOR GFR 1.13 MG/DL (0.70-1.30); GLOMERULAR FILTRATION RATE > 60.0 (>42); GLUCOSE, FASTING 74 MG/DL (74-106); MAGNESIUM LEVEL 1.9 MG/DL (1.8-2.4); SODIUM LEVEL 140 MMOL/L (136-145)
[2023-04-05 18:38] LABS: THYROID STIMULATING HORMONE 3.162 uIU/ML (0.55-4.78)
[2023-04-07 23:10] LABS: TESTOSTERONE FREE (DIRECT) 25.3 pg/mL (6.6-18.1); TESTOSTERONE TOTAL FOR T&D > 1500.0 ng/dL (264-916)
== END ==
LOC: M SFHCCAPE 10:42
PROVIDERS: ATTEND Internal Medicine Hematology
DX: E29.1 Testicular hypofunction (principal); M79.2 Neuralgia and neuritis, unspecified; K74.60 Unspecified cirrhosis of liver

== ENCOUNTER → 2023-04-06 | Outpatient (CLI) | payer MEDICARE ==
[~2023-04-06] VITALS: Ht 177.8 cm; Wt 64.5 kg
[~2023-04-06] MED LIST changes: +methylPREDNISolone 500 MG, VIAL MATE ADAPTER 1 EACH in NS 250 ML IV ONE
[2023-04-06 16:17] VITALS: BP 166/69; O2SAT 100
== END ==
LOC: M INFU 15:50
PROVIDERS: ATTEND Psychiatry & Neurology Neurology
DX: G60.9 Hereditary and idiopathic neuropathy, unspecified (principal); K74.60 Unspecified cirrhosis of liver
CPT/HCPCS: 36415; 80048; 83521; 84155; 84165; 96365; G0463; J2930

== ENCOUNTER → 2023-04-06 | Outpatient (CLI) | payer MEDICARE ==
[~2023-04-06] MED LIST changes: -methylPREDNISolone 500 MG, VIAL MATE ADAPTER 1 EACH in NS 250 ML IV ONE
[2023-04-06 16:18] LABS: BLOOD UREA NITROGEN 22 MG/DL (9-23); CALCIUM LEVEL 8.1 MG/DL (8.3-10.6); CARBON DIOXIDE LEVEL 30 MMOL/L (20-31); CHLORIDE LEVEL 104 MMOL/L (98-107); CREATININE FOR GFR 1.18 MG/DL (0.70-1.30); GLOMERULAR FILTRATION RATE > 60.0 (>42); GLUCOSE, FASTING 101 MG/DL (74-106); POTASSIUM SERUM 4.6 MMOL/L (3.5-5.1); SODIUM LEVEL 142 MMOL/L (136-145)
[2023-04-08 18:10] LABS: FREE KAPPA LIGHT CHAINS SERUM 24.5 mg/L (3.3-19.4); KAPPA/LAMBDA RATIO SERUM 0.74 (0.26-1.65)
== END ==
LOC: M PLALAB 14:14
PROVIDERS: ATTEND Internal Medicine Hematology
DX: K74.60 Unspecified cirrhosis of liver (principal)

== ENCOUNTER 2023-04-13 13:05 | Outpatient (CLI) | payer MEDICARE ==
[~2023-04-13] VITALS: Ht 177.8 cm; Wt 64.5 kg
[2023-04-13 13:13] VITALS: BP 143/67; O2SAT 99
[2023-04-13] MEDS ORDERED: methylPREDNISolone 500 MG, VIAL MATE ADAPTER 1 EACH in NS 250 ML IV ONE (13:30)
[2023-04-13 14:35] VITALS: BP 132/64; O2SAT 98
== END 2023-04-13 14:35 | disposition home or self-care (01) ==
LOC: M INFU 13:05
PROVIDERS: ATTEND Psychiatry & Neurology Neurology
DX: G60.9 Hereditary and idiopathic neuropathy, unspecified (principal)
CPT/HCPCS: 96365; J2930

== ENCOUNTER → 2023-04-13 | Outpatient (REF) | payer MEDICARE | LOC: M SFHCPLAZ 13:00 | PROVIDERS: ATTEND Internal Medicine Hematology | DX: K74.60 Unspecified cirrhosis of liver (principal) ==

== ENCOUNTER 2023-04-20 11:59 | Outpatient (CLI) | payer MEDICARE ==
[~2023-04-20] VITALS: Ht 177.8 cm; Wt 64.5 kg
[2023-04-20 12:10] VITALS: BP 154/78; O2SAT 96
[2023-04-20] MEDS ORDERED: methylPREDNISolone 500 MG, VIAL MATE ADAPTER 1 EACH in NS 250 ML IV ONE (14:00)
[2023-04-20 14:05] VITALS: BP 130/68; O2SAT 99
== END 2023-04-20 14:05 | disposition home or self-care (01) ==
LOC: M INFU 11:59
PROVIDERS: ATTEND Psychiatry & Neurology Neurology
DX: G61.81 Chronic inflammatory demyelinating polyneuritis (principal); E29.1 Testicular hypofunction; I50.812 Chronic right heart failure
CPT/HCPCS: 36415; 80069; 84402; 84403; 96365; J2930

== ENCOUNTER → 2023-04-20 | Outpatient (CLI) | payer MEDICARE ==
[2023-04-20 11:54] LABS: ALBUMIN 3.3 G/DL (3.2-5.2); BLOOD UREA NITROGEN 26 MG/DL (9-23); CALCIUM LEVEL 8.3 MG/DL (8.3-10.6); CARBON DIOXIDE LEVEL 27 MMOL/L (20-31); CHLORIDE LEVEL 105 MMOL/L (98-107); CREATININE FOR GFR 1.15 MG/DL (0.70-1.30); GLOMERULAR FILTRATION RATE > 60.0 (>42); GLUCOSE, FASTING 77 MG/DL (74-106); PHOSPHORUS LEVEL 4.3 MG/DL (2.4-5.1); POTASSIUM SERUM 4.6 MMOL/L (3.5-5.1); SODIUM LEVEL 142 MMOL/L (136-145)
== END ==
LOC: M LAB 10:22
PROVIDERS: ATTEND Internal Medicine Cardiovascular Disease
DX: I50.812 Chronic right heart failure (principal)

== ENCOUNTER → 2023-04-20 | Outpatient (CLI) | payer MEDICARE ==
[2023-04-21 23:07] LABS: TESTOSTERONE FREE (DIRECT) 2.1 pg/mL (6.6-18.1)
== END ==
LOC: M LAB 10:25
PROVIDERS: ATTEND Podiatrist
DX: E29.1 Testicular hypofunction (principal)

== ENCOUNTER 2023-04-21 13:42 | Day surgery (SDC) | payer MEDICARE ==
[~2023-04-21] VITALS: Ht 177.8 cm; Wt 64.2 kg
[2023-04-21] MEDS ORDERED: ACETAMINOPHEN 1000MG 100ML IV BAG As Ordered ONE (17:11)
[2023-04-21] MEDS ORDERED: LIDOCAINE 2% 100MG/5ML SDV (FOR ANES.) As Ordered ONE (17:11)
[2023-04-21] MEDS ORDERED: fentaNYL 100 MCG/2 ML INJECTION As Ordered ONE (17:12)
[2023-04-21] MEDS ORDERED: propofoL 200 MG/20 ML VIAL As Ordered ONE (17:12)
[2023-04-21] MEDS ORDERED: ONDANSETRON 4MG 2ML VIAL As Ordered ONE (17:12)
[2023-04-21] MEDS ORDERED: MIDAZOLAM INJ 2MG/2ML VIAL As Ordered ONE (17:13)
[2023-04-21] MEDS ORDERED: CETACAINE SPRAY 5GM As Ordered ONE (17:17)
[2023-04-21 18:57] VITALS: BP 160/85; TEMP 97.9; O2SAT 99
== END 2023-04-21 19:08 | disposition home or self-care (01) ==
LOC: M SDC 13:42
PROVIDERS: ATTEND Internal Medicine Cardiovascular Disease
DX: I34.0 Nonrheumatic mitral (valve) insufficiency (principal); I50.30 Unspecified diastolic (congestive) heart failure; I11.0 Hypertensive heart disease with heart failure; G47.33 Obstructive sleep apnea (adult) (pediatric); I27.29 Other secondary pulmonary hypertension; Z79.899 Other long term (current) drug therapy
CPT/HCPCS: 93312; 93320; 93325; J0131; J2250; J2405; J3010

== ENCOUNTER 2023-04-27 13:27 | Outpatient (CLI) | payer MEDICARE ==
[~2023-04-27] VITALS: Ht 177.8 cm; Wt 64.5 kg
[2023-04-27 13:45] VITALS: BP 136/70; O2SAT 100
[2023-04-27] MEDS ORDERED: methylPREDNISolone 500 MG, VIAL MATE ADAPTER 1 EACH in NS 250 ML IV ONE (14:00)
[2023-04-27 15:00] VITALS: BP 156/74; O2SAT 100
== END 2023-04-27 15:00 ==
LOC: M INFU 13:27
PROVIDERS: ATTEND Psychiatry & Neurology Neurology
DX: G60.9 Hereditary and idiopathic neuropathy, unspecified (principal)
CPT/HCPCS: 96365; J2930

== ENCOUNTER 2023-05-04 13:00 | Outpatient (CLI) | payer MEDICARE ==
[2023-05-04] MEDS ORDERED: methylPREDNISolone 500 MG, VIAL MATE ADAPTER 1 EACH in NS 250 ML IV ONE (13:30)
[2023-05-04 13:47] VITALS: BP 139/72; O2SAT 99
[2023-05-04 14:55] VITALS: BP 128/64; O2SAT 98
== END 2023-05-04 14:55 ==
LOC: M INFU 13:00
PROVIDERS: ATTEND Psychiatry & Neurology Neurology
DX: G61.81 Chronic inflammatory demyelinating polyneuritis (principal)
CPT/HCPCS: 96365; J2930

== ENCOUNTER 2023-05-11 12:55 | Outpatient (CLI) | payer MEDICARE ==
[~2023-05-11] VITALS: Ht 177.8 cm; Wt 65.5 kg
[2023-05-11] MEDS ORDERED: methylPREDNISolone 500 MG, VIAL MATE ADAPTER 1 EACH in NS 250 ML IV ONE (13:30)
[2023-05-11 13:55] VITALS: BP 153/88; O2SAT 97
[2023-05-11 14:58] VITALS: BP 142/71; O2SAT 100
== END 2023-05-11 15:00 ==
LOC: M INFU 12:55
PROVIDERS: ATTEND Psychiatry & Neurology Neurology
DX: G61.81 Chronic inflammatory demyelinating polyneuritis (principal)
CPT/HCPCS: 96365; J2930

== ENCOUNTER 2023-05-18 11:30 | Outpatient (CLI) | payer MEDICARE ==
[~2023-05-18 11:30] MED LIST changes: +methylPREDNISolone 500 MG, VIAL MATE ADAPTER 1 EACH in NS 250 ML IV ONE
[2023-05-18 12:20] VITALS: BP 128/66; O2SAT 98
== END 2023-05-18 12:30 ==
LOC: M INFU 11:30
PROVIDERS: ATTEND Psychiatry & Neurology Neurology
DX: G60.9 Hereditary and idiopathic neuropathy, unspecified (principal); G61.81 Chronic inflammatory demyelinating polyneuritis
CPT/HCPCS: 96365; J2930

== ENCOUNTER → 2023-05-18 | Outpatient (CLI) | payer MEDICARE ==
[~2023-05-18] MED LIST changes: +ANDR1.62 TOP; +FOLI1TAB11 PO; +GASTROGRAFIN SOLUTION 30ML As Ordered ONE; +ISOVUE-370 76% 100ML VIAL As Ordered ONE; +LUTE40CA2 PO; +METH2.5T48 PO; +TORS20TA2 PO; +VITA50TA43 PO
[2023-05-18 11:46] LABS: BASO # 0.1 10^3/uL (0.0-0.2); BASO % 0.5 % (0.0-1.0); EOS # 0.3 10^3/uL (0.0-0.5); EOS % 3.1 % (0.0-3.0); HEMATOCRIT 43.6 % (42.0-52.0); HEMOGLOBIN 14.3 g/dl (13.5-17.5); LYMPH # 1.9 10^3/uL (1.5-5.0); LYMPH % 17.9 % (24.0-44.0); MEAN CORPUSCULAR HGB CONC 32.8 g/dl (32.0-36.5); MEAN CORPUSCULAR VOLUME 103.6 fl (80.0-96.0); MONO # 0.5 10^3/uL (0.0-0.8); MONO % 4.5 % (2.0-8.0); NEUTROPHILS # 7.9 10^3/uL (1.5-8.5); NEUTROPHILS % 73.4 % (36.0-66.0); PLATELET COUNT, AUTOMATED 341 10^3/uL (150-450); RED BLOOD COUNT 4.21 10^6/uL (4.30-6.10); WHITE BLOOD COUNT 10.8 10^3/uL (4.0-10.0)
[2023-05-18 12:06] LABS: ALBUMIN 3.3 G/DL (3.2-5.2); ALKALINE PHOSPHATASE 94 U/L (46-116); ALT/SGPT 23 U/L (7.0-40); AST/SGOT 14 U/L (<34); BILIRUBIN,TOTAL 0.5 MG/DL (0.3-1.2); BLOOD UREA NITROGEN 24 MG/DL (9-23); CALCIUM LEVEL 8.8 MG/DL (8.3-10.6); CARBON DIOXIDE LEVEL 29 MMOL/L (20-31); CHLORIDE LEVEL 108 MMOL/L (98-107); CREATININE FOR GFR 1.12 MG/DL (0.70-1.30); GLOMERULAR FILTRATION RATE > 60.0 (>42); GLUCOSE, FASTING 99 MG/DL (74-106); IRON (FE) 92 UG/DL (65-175); PERCENT SATURATION 30.6 % (19.7-50.0); POTASSIUM SERUM 4.8 MMOL/L (3.5-5.1); SODIUM LEVEL 143 MMOL/L (136-145); TOTAL IRON BINDING CAPACITY 301 UG/DL (250-425)
[2023-05-18 12:08] LABS: IMMUNOGLOBULIN G 684 MG/DL (650-1600)
[2023-05-18 12:09] LABS: FERRITIN 106.7 NG/ML (10.5-307.3); HEPATITIS B SURFACE ANTIBODY NEGATIVE (POSITIVE)
[2023-05-18 12:41] LABS: HEPATITIS B CORE ANTIBODY IGM NEGATIVE (NEGATIVE); HEPATITIS C VIRUS ABY INDEX 0.02 INDEX (<0.8)
[2023-05-24 12:08] LABS: ANTINUCLEAR ANTIBODIES DIRECT Negative (Negative); LIVER-KIDNEY MICROSOMAL ABY <20.1 Units (0.0-20.0); TISSUE TRANSGLUTAMINASE IgA <2 U/mL (0-3)
== END ==
LOC: M RAD 10:11
PROVIDERS: ATTEND Internal Medicine Gastroenterology
DX: R16.1 Splenomegaly, not elsewhere classified (principal); N20.0 Calculus of kidney; R63.4 Abnormal weight loss; R93.3 Abnormal findings on diagnostic imaging of other parts of digestive tract; D50.9 Iron deficiency anemia, unspecified; R79.89 Other specified abnormal findings of blood chemistry; R93.2 Abnormal findings on diagnostic imaging of liver and biliary tract; Z11.3 Encounter for screening for infections with a predominantly sexual mode of transmission; Z11.59 Encounter for screening for other viral diseases; Z72.89 Other problems related to lifestyle
CPT/HCPCS: 36415; 74178; 80053; 81256; 82105; 82397; 82728; 82784; 83520; 83550; 83883; 84402; 84403; 85025; 86038; 86255; 86364; 86376; 86705; 86706; 86803; 87340; Q9963; Q9967

== ENCOUNTER → 2023-05-18 | Outpatient (CLI) | payer MEDICARE ==
[~2023-05-18] MED LIST changes: -ANDR1.62 TOP; -FOLI1TAB11 PO; -GASTROGRAFIN SOLUTION 30ML As Ordered ONE; -ISOVUE-370 76% 100ML VIAL As Ordered ONE; -LUTE40CA2 PO; -METH2.5T48 PO; -TORS20TA2 PO; -VITA50TA43 PO
[2023-05-19 15:08] LABS: TESTOSTERONE FREE (DIRECT) 20.1 pg/mL (6.6-18.1)
== END ==
LOC: M LAB 10:16
PROVIDERS: ATTEND Specialist
DX: R79.89 Other specified abnormal findings of blood chemistry (principal)

== ENCOUNTER 2023-05-25 12:45 | Outpatient (CLI) | payer MEDICARE ==
[~2023-05-25] VITALS: Ht 177.8 cm; Wt 65.0 kg
[~2023-05-25 12:45] MED LIST changes: +methylPREDNISolone 500 MG, VIAL MATE ADAPTER 1 EACH in NS 250 ML IV ONE
[2023-05-25 13:17] VITALS: BP 150/76; O2SAT 97
[2023-05-25 14:16] VITALS: BP 165/81; O2SAT 100
== END 2023-05-25 14:15 ==
LOC: M INFU 12:45
PROVIDERS: ATTEND Psychiatry & Neurology Neurology
DX: G60.9 Hereditary and idiopathic neuropathy, unspecified (principal); G61.81 Chronic inflammatory demyelinating polyneuritis

== ENCOUNTER → 2023-05-25 | Outpatient (CLI) | payer MEDICARE ==
[~2023-05-25] MED LIST changes: -methylPREDNISolone 500 MG, VIAL MATE ADAPTER 1 EACH in NS 250 ML IV ONE
[2023-05-25 12:19] LABS: BASO # 0.1 10^3/uL (0.0-0.2); BASO % 0.5 % (0.0-1.0); EOS # 0.4 10^3/uL (0.0-0.5); EOS % 2.8 % (0.0-3.0); HEMATOCRIT 44.1 % (42.0-52.0); HEMOGLOBIN 14.3 g/dl (13.5-17.5); LYMPH # 2.1 10^3/uL (1.5-5.0); LYMPH % 16.7 % (24.0-44.0); MEAN CORPUSCULAR HEMOGLOBIN 33.7 pg (27.0-33.0); MEAN CORPUSCULAR HGB CONC 32.4 g/dl (32.0-36.5); MONO # 0.6 10^3/uL (0.0-0.8); MONO % 4.6 % (2.0-8.0); NEUTROPHILS # 9.5 10^3/uL (1.5-8.5); NEUTROPHILS % 74.8 % (36.0-66.0); PLATELET COUNT, AUTOMATED 336 10^3/uL (150-450); RED BLOOD COUNT 4.24 10^6/uL (4.30-6.10); WHITE BLOOD COUNT 12.7 10^3/uL (4.0-10.0)
[2023-05-25 12:47] LABS: CALCIUM LEVEL 8.5 MG/DL (8.3-10.6); CREATININE FOR GFR 1.34 MG/DL (0.70-1.30); GLOMERULAR FILTRATION RATE 54.7 (>42); POTASSIUM SERUM 4.5 MMOL/L (3.5-5.1)
== END ==
LOC: M LAB 11:11
PROVIDERS: ATTEND Internal Medicine Cardiovascular Disease
DX: I34.0 Nonrheumatic mitral (valve) insufficiency (principal); I50.82 Biventricular heart failure; G60.9 Hereditary and idiopathic neuropathy, unspecified
CPT/HCPCS: 80048; 85025; 96365; J2930

== ENCOUNTER 2023-06-08 13:50 | Outpatient (CLI) | payer MEDICARE ==
[~2023-06-08] VITALS: Ht 177.8 cm; Wt 65.0 kg
[~2023-06-08 13:50] MED LIST changes: -methylPREDNISolone 500 MG, VIAL MATE ADAPTER 1 EACH in NS 250 ML IV ONE
[2023-06-08 13:55] VITALS: BP 149/72; O2SAT 100
[2023-06-08] MEDS ORDERED: methylPREDNISolone 500 MG, VIAL MATE ADAPTER 1 EACH in NS 250 ML IV ONE (14:00)
[2023-06-08 15:03] VITALS: BP 136/74; O2SAT 99
[2023-06-09] MEDS ORDERED: FOLI1TAB11 PO (16:21)
[2023-06-09] MEDS ORDERED: ANDR1.62 TOP (16:21)
[2023-06-09] MEDS ORDERED: LUTE40CA2 PO (16:21)
[2023-06-09] MEDS ORDERED: VITA50TA43 PO (16:21)
[2023-06-09] MEDS ORDERED: METH2.5T48 PO (16:21)
[2023-06-09] MEDS ORDERED: TORS20TA2 PO (16:21)
== END 2023-06-08 15:05 | disposition home or self-care (01) ==
LOC: M INFU 13:50
PROVIDERS: ATTEND Psychiatry & Neurology Neurology
DX: G61.81 Chronic inflammatory demyelinating polyneuritis (principal); G60.9 Hereditary and idiopathic neuropathy, unspecified
CPT/HCPCS: 96365; J2930

== ENCOUNTER → 2023-06-14 | Outpatient (CLI) | payer MEDICARE ==
[~2023-06-14] MED LIST changes: +ANDR1.62 TOP; +FOLI1TAB11 PO; +LUTE40CA2 PO; +METH2.5T48 PO; +TORS20TA2 PO; +VITA50TA43 PO
== END ==
LOC: M IRPRO 09:51
PROVIDERS: ATTEND Internal Medicine Gastroenterology
DX: K74.60 Unspecified cirrhosis of liver (principal)

== ENCOUNTER 2023-06-15 13:15 | Outpatient (CLI) | payer MEDICARE ==
[~2023-06-15] VITALS: Ht 177.8 cm; Wt 65.0 kg
[~2023-06-15 13:15] MED LIST changes: +methylPREDNISolone 500 MG, VIAL MATE ADAPTER 1 EACH in NS 250 ML IV ONE
[2023-06-15 13:35] VITALS: BP 170/69; O2SAT 100
== END 2023-06-15 14:50 | disposition home or self-care (01) ==
LOC: M INFU 13:15
PROVIDERS: ATTEND Psychiatry & Neurology Neurology
DX: G60.9 Hereditary and idiopathic neuropathy, unspecified (principal); G61.81 Chronic inflammatory demyelinating polyneuritis
CPT/HCPCS: 96365; J2930

== ENCOUNTER → 2023-06-29 | Outpatient (CLI) | payer MEDICARE ==
[~2023-06-29] MED LIST changes: -methylPREDNISolone 500 MG, VIAL MATE ADAPTER 1 EACH in NS 250 ML IV ONE
[2023-06-30 20:07] LABS: TESTOSTERONE FREE (DIRECT) 9.2 pg/mL (6.6-18.1)
== END ==
LOC: M LAB 13:52
PROVIDERS: ATTEND Specialist
DX: R79.89 Other specified abnormal findings of blood chemistry (principal)

== ENCOUNTER → 2023-07-30 | Outpatient (CLI) | payer MEDICARE ==
[2023-08-02 11:08] LABS: PSA TOTAL 0.8 ng/mL (0.0-4.0)
== END ==
LOC: M PLALAB 12:41
PROVIDERS: ATTEND Specialist
DX: R79.89 Other specified abnormal findings of blood chemistry (principal); R97.20 Elevated prostate specific antigen [PSA]

== ENCOUNTER → 2023-08-23 | Outpatient (REF) | payer MEDICARE ==
[~2023-08-23] MED LIST changes: -MIRA1POW3 PO; +MIRA33506 PO
[2023-08-23 18:29] LABS: HEMATOCRIT 42.8 % (42.0-52.0); HEMOGLOBIN 14.1 g/dl (13.5-17.5); MEAN CORPUSCULAR HEMOGLOBIN 33.8 pg (27.0-33.0); MEAN CORPUSCULAR HGB CONC 32.9 g/dl (32.0-36.5); MEAN CORPUSCULAR VOLUME 102.6 fl (80.0-96.0); PLATELET COUNT, AUTOMATED 341 10^3/uL (150-450); RED BLOOD COUNT 4.17 10^6/uL (4.30-6.10); WHITE BLOOD COUNT 10.7 10^3/uL (4.0-10.0)
[2023-08-23 18:31] LABS: PSA SCREENING 0.73 NG/ML (< 4.00)
[2023-08-23 18:38] LABS: ALBUMIN 3.3 G/DL (3.2-5.2); ALKALINE PHOSPHATASE 70 U/L (46-116); ALT/SGPT < 9 U/L (7.0-40); AST/SGOT < 8 U/L (<34); BILIRUBIN,TOTAL 0.4 MG/DL (0.3-1.2); BLOOD UREA NITROGEN 36 MG/DL (9-23); CALCIUM LEVEL 8.4 MG/DL (8.3-10.6); CARBON DIOXIDE LEVEL 34 MMOL/L (20-31); CHLORIDE LEVEL 103 MMOL/L (98-107); CREATININE FOR GFR 1.37 MG/DL (0.70-1.30); GLOMERULAR FILTRATION RATE 53.4 (>42); GLUCOSE, FASTING 105 MG/DL (74-106); POTASSIUM SERUM 4.4 MMOL/L (3.5-5.1); SODIUM LEVEL 139 MMOL/L (136-145); TOTAL PROTEIN 5.7 G/DL (5.7-8.2)
== END ==
LOC: M SFHCCLAY 09:57
PROVIDERS: ATTEND Specialist
DX: R79.89 Other specified abnormal findings of blood chemistry (principal); Z12.5 Encounter for screening for malignant neoplasm of prostate
CPT/HCPCS: 80053; 84402; 84403; 85027; G0103

== ENCOUNTER → 2023-09-13 | Outpatient (REF) | payer MEDICARE ==
[2023-09-15 23:16] LABS: TESTOSTERONE FREE (DIRECT) 23.6 pg/mL (6.6-18.1)
== END ==
LOC: M SFHCCAPE 07:36
PROVIDERS: ATTEND Specialist
DX: R79.89 Other specified abnormal findings of blood chemistry (principal)

== ENCOUNTER → 2023-09-29 | Outpatient (REF) | payer MEDICARE ==
[2023-09-29 13:50] LABS: PERCENT SATURATION 28.5 % (19.7-50.0)
[2023-09-29 13:52] LABS: FERRITIN 43.3 NG/ML (10.5-307.3)
[2023-09-30 18:11] LABS: FREE KAPPA LIGHT CHAINS SERUM 22.8 mg/L (3.3-19.4); FREE LAMBDA LIGHT CHAINS SERUM 33.4 mg/L (5.7-26.3); KAPPA/LAMBDA RATIO SERUM 0.68 (0.26-1.65)
== END ==
LOC: M LAB REF 11:59
PROVIDERS: ATTEND Internal Medicine
DX: G62.9 Polyneuropathy, unspecified (principal); K74.69 Other cirrhosis of liver

== ENCOUNTER → 2023-10-13 | Outpatient (CLI) | payer MEDICARE ==
[2023-10-14 23:12] LABS: TESTOSTERONE FREE (DIRECT) 15.8 pg/mL (6.6-18.1)
== END ==
LOC: M PLALAB 10:24
PROVIDERS: ATTEND Specialist
DX: R79.89 Other specified abnormal findings of blood chemistry (principal)

== ENCOUNTER → 2024-02-01 | Outpatient (REF) | payer MEDICARE | LOC: M LAB REF 13:55 | PROVIDERS: ATTEND Internal Medicine | DX: E29.1 Testicular hypofunction (principal) ==

== ENCOUNTER → 2024-03-02 | Outpatient (CLI) | payer MEDICARE | LOC: M RAD 07:06 | PROVIDERS: ATTEND Internal Medicine | DX: R18.8 Other ascites (principal); G61.81 Chronic inflammatory demyelinating polyneuritis ==

== ENCOUNTER → 2024-03-02 | Outpatient (CLI) | payer MEDICARE ==
[2024-03-02 08:02] LABS: BASO # 0.1 10^3/uL (0.0-0.2); BASO % 0.8 % (0.0-1.0); EOS # 0.1 10^3/uL (0.0-0.5); EOS % 0.6 % (0.0-3.0); HEMATOCRIT 43.8 % (42.0-52.0); HEMOGLOBIN 14.5 g/dl (13.5-17.5); LYMPH # 2.8 10^3/uL (1.5-5.0); LYMPH % 34.9 % (24.0-44.0); MEAN CORPUSCULAR HGB CONC 33.1 g/dl (32.0-36.5); MEAN CORPUSCULAR VOLUME 102.8 fl (80.0-96.0); MONO # 0.6 10^3/uL (0.0-0.8); MONO % 7.9 % (2.0-8.0); NEUTROPHILS # 4.4 10^3/uL (1.5-8.5); NEUTROPHILS % 55.5 % (36.0-66.0); PLATELET COUNT, AUTOMATED 341 10^3/uL (150-450); RED BLOOD COUNT 4.26 10^6/uL (4.30-6.10)
== END ==
LOC: M LAB 07:12
PROVIDERS: ATTEND Student in an Organized Health Care Education/Training Program
DX: G61.81 Chronic inflammatory demyelinating polyneuritis (principal)

== ENCOUNTER → 2024-05-09 | Outpatient (REF) | payer MEDICARE ==
[2024-05-09 18:31] LABS: BASO # 0.1 10^3/uL (0.0-0.2); BASO % 0.5 % (0.0-1.0); EOS # 0.1 10^3/uL (0.0-0.5); EOS % 0.9 % (0.0-3.0); HEMATOCRIT 49.3 % (42.0-52.0); HEMOGLOBIN 15.5 g/dl (13.5-17.5); LYMPH # 3.5 10^3/uL (1.5-5.0); LYMPH % 32.1 % (24.0-44.0); MEAN CORPUSCULAR HEMOGLOBIN 31.6 pg (27.0-33.0); MEAN CORPUSCULAR HGB CONC 31.4 g/dl (32.0-36.5); MEAN CORPUSCULAR VOLUME 100.6 fl (80.0-96.0); MONO # 0.6 10^3/uL (0.0-0.8); MONO % 5.3 % (2.0-8.0); NEUTROPHILS # 6.6 10^3/uL (1.5-8.5); NEUTROPHILS % 60.3 % (36.0-66.0); PLATELET COUNT, AUTOMATED 348 10^3/uL (150-450); WHITE BLOOD COUNT 10.9 10^3/uL (4.0-10.0)
== END ==
LOC: M LABDRWCV 17:25
PROVIDERS: ATTEND Student in an Organized Health Care Education/Training Program
DX: G61.81 Chronic inflammatory demyelinating polyneuritis (principal)

== ENCOUNTER → 2024-07-05 | Outpatient (REF) | payer MEDICARE ==
[2024-07-05 18:18] LABS: BASO # 0.1 10^3/uL (0.0-0.2); BASO % 0.6 % (0.0-1.0); EOS # 0.1 10^3/uL (0.0-0.5); EOS % 0.6 % (0.0-3.0); HEMATOCRIT 47.4 % (42.0-52.0); HEMOGLOBIN 15.2 g/dl (13.5-17.5); LYMPH # 2.5 10^3/uL (1.5-5.0); LYMPH % 20.9 % (24.0-44.0); MEAN CORPUSCULAR HEMOGLOBIN 31.2 pg (27.0-33.0); MEAN CORPUSCULAR HGB CONC 32.1 g/dl (32.0-36.5); MEAN CORPUSCULAR VOLUME 97.3 fl (80.0-96.0); MONO # 0.8 10^3/uL (0.0-0.8); MONO % 6.6 % (2.0-8.0); NEUTROPHILS # 8.4 10^3/uL (1.5-8.5); NEUTROPHILS % 70.6 % (36.0-66.0); PLATELET COUNT, AUTOMATED 495 10^3/uL (150-450); RED BLOOD COUNT 4.87 10^6/uL (4.30-6.10); WHITE BLOOD COUNT 11.9 10^3/uL (4.0-10.0)
== END ==
LOC: M LAB REF 16:46 → M LABDRWCV 16:46
PROVIDERS: ATTEND Student in an Organized Health Care Education/Training Program
DX: G61.81 Chronic inflammatory demyelinating polyneuritis (principal)

== ENCOUNTER → 2024-08-21 | Outpatient (REF) | payer MEDICARE ==
[2024-08-21 18:12] LABS: BASO # 0.1 10^3/uL (0.0-0.2); BASO % 0.5 % (0.0-1.0); EOS # 0.1 10^3/uL (0.0-0.5); HEMATOCRIT 49.4 % (42.0-52.0); HEMOGLOBIN 15.2 g/dl (13.5-17.5); LYMPH # 3.2 10^3/uL (1.5-5.0); LYMPH % 28.3 % (24.0-44.0); MEAN CORPUSCULAR HEMOGLOBIN 30.2 pg (27.0-33.0); MEAN CORPUSCULAR HGB CONC 30.8 g/dl (32.0-36.5); MONO # 0.6 10^3/uL (0.0-0.8); MONO % 5.4 % (2.0-8.0); NEUTROPHILS # 7.3 10^3/uL (1.5-8.5); NEUTROPHILS % 64.2 % (36.0-66.0); PLATELET COUNT, AUTOMATED 399 10^3/uL (150-450); RED BLOOD COUNT 5.04 10^6/uL (4.30-6.10); WHITE BLOOD COUNT 11.4 10^3/uL (4.0-10.0)
== END ==
LOC: M LABDRWCV 16:38
PROVIDERS: ATTEND Student in an Organized Health Care Education/Training Program
DX: G61.81 Chronic inflammatory demyelinating polyneuritis (principal)

== ENCOUNTER → 2024-10-30 | Outpatient (REF) | payer MEDICARE ==
[2024-10-30 18:16] LABS: BASO # 0.1 10^3/uL (0.0-0.2); BASO % 0.8 % (0.0-1.0); EOS # 0.1 10^3/uL (0.0-0.5); HEMATOCRIT 44.9 % (42.0-52.0); HEMOGLOBIN 13.9 g/dl (13.5-17.5); LYMPH # 2.2 10^3/uL (1.5-5.0); LYMPH % 24.5 % (24.0-44.0); MEAN CORPUSCULAR HEMOGLOBIN 29.3 pg (27.0-33.0); MEAN CORPUSCULAR VOLUME 94.7 fl (80.0-96.0); MONO # 0.6 10^3/uL (0.0-0.8); MONO % 6.5 % (2.0-8.0); NEUTROPHILS # 5.9 10^3/uL (1.5-8.5); NEUTROPHILS % 66.7 % (36.0-66.0); PLATELET COUNT, AUTOMATED 397 10^3/uL (150-450); RED BLOOD COUNT 4.74 10^6/uL (4.30-6.10); WHITE BLOOD COUNT 8.8 10^3/uL (4.0-10.0)
== END ==
LOC: M LABDRWCV 17:30
PROVIDERS: ATTEND Student in an Organized Health Care Education/Training Program
DX: G61.81 Chronic inflammatory demyelinating polyneuritis (principal)

== ENCOUNTER → 2025-01-17 | Outpatient (REF) | payer MEDICARE | LOC: M LAB REF 11:57 | PROVIDERS: ATTEND Internal Medicine | DX: E29.1 Testicular hypofunction (principal) ==

== ENCOUNTER → 2025-01-23 | Outpatient (CLI) | payer MEDICARE ==
[~2025-01-23] MED LIST changes: +ACET650T61 PO; +MAGN400T33 PO; +MYCO500T PO; +PRED20TA PO; +SENN18TA PO; +SENN8.6T58 PO
== END ==
LOC: M EKG 11:35
PROVIDERS: ATTEND Physician Assistant
DX: I49.3 Ventricular premature depolarization (principal); E07.9 Disorder of thyroid, unspecified

== ENCOUNTER → 2025-01-23 | Outpatient (CLI) | payer MEDICARE ==
[~2025-01-23] MED LIST changes: -ACET650T61 PO; -MAGN400T33 PO; -MYCO500T PO; -PRED20TA PO; -SENN18TA PO; -SENN8.6T58 PO
[2025-01-23 14:19] LABS: MAGNESIUM LEVEL 2.0 MG/DL (1.8-2.4)
== END ==
LOC: M PLALAB 11:00
PROVIDERS: ATTEND Physician Assistant
DX: I49.3 Ventricular premature depolarization (principal); E07.9 Disorder of thyroid, unspecified

== ENCOUNTER 2025-01-29 10:40 | Inpatient (IN) | payer MEDICARE ==
[~2025-01-29] VITALS: Ht 177.8 cm; Wt 75.0 kg
[2025-01-29] MEDS ORDERED: MYCO500T PO (11:06)
[2025-01-29 11:56] LABS: BASO # 0.1 10^3/uL (0.0-0.2); BASO % 0.7 % (0.0-1.0); EOS # 0.1 10^3/uL (0.0-0.5); EOS % 1.6 % (0.0-3.0); LYMPH # 1.6 10^3/uL (1.5-5.0); LYMPH % 21.3 % (24.0-44.0); MONO # 0.7 10^3/uL (0.0-0.8); MONO % 8.7 % (2.0-8.0); NEUTROPHILS # 5.1 10^3/uL (1.5-8.5); NEUTROPHILS % 67.4 % (36.0-66.0); PLATELET COUNT, AUTOMATED 476 10^3/uL (150-450)
[2025-01-29 12:26] LABS: ALT/SGPT < 9 U/L (7.0-40); AST/SGOT 11 U/L (<34); CALCIUM LEVEL 8.9 MG/DL (8.3-10.6); CARBON DIOXIDE LEVEL 30 MMOL/L (20-31); CHLORIDE LEVEL 96 MMOL/L (98-107); CREATININE FOR GFR 1.42 MG/DL (0.70-1.30); GLOMERULAR FILTRATION RATE 49.6 (>35); POTASSIUM SERUM 4.4 MMOL/L (3.5-5.1); SODIUM LEVEL 138 MMOL/L (136-145)
[2025-01-29] MEDS: ONDANSETRON 4MG 2ML VIAL IV ONE (13:25)
[2025-01-29] MEDS: NS (Normal Saline) 0.9% 1,000 ML IV ONE (13:25)
[2025-01-29] MEDS: PANTOPRAZOLE 40MG VIAL IV ONE (13:25)
[2025-01-29 13:35] LABS: BASO # 0.0 10^3/uL (0.0-0.2); BASO % 0.6 % (0.0-1.0); EOS # 0.1 10^3/uL (0.0-0.5); EOS % 1.3 % (0.0-3.0); LYMPH # 1.6 10^3/uL (1.5-5.0); LYMPH % 23.7 % (24.0-44.0); MONO # 0.6 10^3/uL (0.0-0.8); MONO % 7.9 % (2.0-8.0); NEUTROPHILS # 4.6 10^3/uL (1.5-8.5); NEUTROPHILS % 66.4 % (36.0-66.0); PLATELET COUNT, AUTOMATED 477 10^3/uL (150-450)
[2025-01-29 13:42] LABS: ERYTHROCYTE SEDIMENTATION RATE 25 mm/hr (0-20)
[2025-01-29 14:57] LABS: CK-MB VALUE MASS < 1.0 NG/ML (<3.6)
[2025-01-29 14:59] LABS: C REACTIVE PROTEIN QUANTITATIV 1.12 MG/DL (<1.0)
[2025-01-29 15:01] LABS: ALT/SGPT < 9 U/L (7.0-40); AST/SGOT 12 U/L (<34); CALCIUM LEVEL 7.0 MG/DL (8.3-10.6); CARBON DIOXIDE LEVEL 25 MMOL/L (20-31); CHLORIDE LEVEL 104 MMOL/L (98-107); CPK CREATINE PHOSPHOKINASE 29 U/L (46-171); CREATININE FOR GFR 1.15 MG/DL (0.70-1.30); GLOMERULAR FILTRATION RATE 63.9 (>35); POTASSIUM SERUM 3.6 MMOL/L (3.5-5.1); SODIUM LEVEL 140 MMOL/L (136-145)
[2025-01-29] MEDS ORDERED: ACET650T61 PO (18:39)
[2025-01-29] MEDS: methylPREDNISolone 1,000 MG, VIAL MATE ADAPTER 1 EACH in NS 100 ML IV ONE (18:49)
[2025-01-29] MEDS ORDERED: PILL CUTTER 1 EACH XX PRN (18:50)
[2025-01-29] MEDS ORDERED: HOME MED LIST COMPLETE! XX SCH (19:00)
[2025-01-29] MEDS ORDERED: MOM 30 ML SUSPENSION UDC PO PRN (19:40)
[2025-01-29] MEDS ORDERED: MAALOX 30 ML SUSP *UDC PO PRN (19:40)
[2025-01-29] MEDS: MYCOPHENOLATE MOFETIL 250 MG CAP (J7517) PO SCH (21:18)
[2025-01-29 21:29] LABS: INR 1.07
[2025-01-29 21:34] LABS: MAGNESIUM LEVEL 1.7 MG/DL (1.8-2.4)
[2025-01-29 21:41] VITALS: BP 138/78; TEMP 97.3; O2SAT 96
[2025-01-29 21:48] LABS: KETONE, URINE AUTO RFX NEGATIVE (NEGATIVE); LEUKOCYTE ESTERASE UR AUTO RFX NEGATIVE (NEGATIVE); NITRITE, URINE AUTO RFX NEGATIVE (NEGATIVE); RBC, URINE AUTO RFX 2 /HPF (0-3); SQUAM EPITHELIAL CELL UR AURFX 0 /HPF (0-6); WBC, URINE AUTO RFX 2 /HPF (0-3)
[2025-01-29] MEDS ORDERED: BISACODYL 10 MG SUPP PR PRN (22:00)
[2025-01-29 22:30] LABS: PHOSPHORUS LEVEL 4.8 MG/DL (2.4-5.1)
[2025-01-29] MEDS: CALCIUM/VITAMIN D 500 MG TAB PO SCH (23:02)
[2025-01-29] MEDS: DOCUSATE SODIUM 100 MG CAPSULE PO SCH (23:02)
[2025-01-29] MEDS: MAGNESIUM OXIDE 400 MG TAB PO SCH (23:02)
[2025-01-29 23:29] VITALS: BP 136/71; TEMP 97.3; O2SAT 96
[2025-01-30] VITALS (7 sets, daily range): BP systolic 120–146; BP diastolic 72–86; TEMP 96.8–97.8; O2SAT 96–100
[2025-01-30] MEDS: ACETAMINOPHEN 650 MG ER TAB PO PRN (05:26)
[2025-01-30] MEDS: LEVOTHYROXINE 150 MCG TABLET (0.15 MG) PO SCH (05:28)
[2025-01-30 07:52] LABS: PLATELET COUNT, AUTOMATED 575 10^3/uL (150-450)
[2025-01-30 08:23] LABS: ALT/SGPT 17.0 U/L (7.0-40); AST/SGOT 36.0 U/L (<34); CALCIUM LEVEL 8.7 MG/DL (8.3-10.6); CARBON DIOXIDE LEVEL 26.0 MMOL/L (20-31); CHLORIDE LEVEL 99.0 MMOL/L (98-107); CREATININE FOR GFR 1.16 MG/DL (0.70-1.30); GLOMERULAR FILTRATION RATE 63.3 (>35); MAGNESIUM LEVEL 1.9 MG/DL (1.8-2.4); POTASSIUM SERUM 4.7 MMOL/L (3.5-5.1); SODIUM LEVEL 138.0 MMOL/L (136-145)
[2025-01-30] MEDS: MIRALAX *UNIT DOSE* 17 GM PACKET PO SCH (09:00)
[2025-01-30] MEDS: methylPREDNISolone 1,000 MG, VIAL MATE ADAPTER 1 EACH in NS 100 ML IV SCH (09:00)
[2025-01-30] MEDS: ENOXAPARIN 40 MG/0.4 ML SYRINGE (J1650 PER 10MG) SC SCH (09:44)
[2025-01-30] MEDS: TORSEMIDE 20 MG TAB PO SCH (09:45)
[2025-01-30] MEDS ORDERED: methylPREDNISolone 1,000 MG, VIAL MATE ADAPTER 1 EACH in NS 100 ML IV SCH (18:00)
[2025-01-31 05:27] VITALS: BP 137/80; TEMP 97.5; O2SAT 96
[2025-01-31 07:03] LABS: PLATELET COUNT, AUTOMATED 572 10^3/uL (150-450)
[2025-01-31 07:28] LABS: ALT/SGPT 15.0 U/L (7.0-40); AST/SGOT 24.0 U/L (<34); CALCIUM LEVEL 8.7 MG/DL (8.3-10.6); CARBON DIOXIDE LEVEL 28.0 MMOL/L (20-31); CHLORIDE LEVEL 103.0 MMOL/L (98-107); CREATININE FOR GFR 1.29 MG/DL (0.70-1.30); GLOMERULAR FILTRATION RATE 55.7 (>35); POTASSIUM SERUM 4.7 MMOL/L (3.5-5.1); SODIUM LEVEL 142.0 MMOL/L (136-145)
[2025-01-31 08:00] VITALS: BP 120/68; TEMP 97.9
[2025-01-31 09:07] VITALS: BP 120/78
[2025-01-31 12:00] VITALS: BP 139/81; TEMP 97.7
[2025-01-31] MEDS: SENNA 8.6 MG TAB PO SCH (21:11)
[2025-01-31 22:27] VITALS: BP 135/84; TEMP 97.9; O2SAT 96
[2025-02-01] VITALS (7 sets, daily range): BP systolic 129–164; BP diastolic 64–108; TEMP 96.7–97.9; O2SAT 96–99
[2025-02-01 06:42] LABS: PLATELET COUNT, AUTOMATED 499 10^3/uL (150-450)
[2025-02-01 07:11] LABS: ALT/SGPT 15.0 U/L (7.0-40); AST/SGOT 15.0 U/L (<34); CALCIUM LEVEL 8.9 MG/DL (8.3-10.6); CARBON DIOXIDE LEVEL 28.0 MMOL/L (20-31); CHLORIDE LEVEL 103.0 MMOL/L (98-107); CREATININE FOR GFR 1.19 MG/DL (0.70-1.30); GLOMERULAR FILTRATION RATE 61.4 (>35); POTASSIUM SERUM 4.5 MMOL/L (3.5-5.1); SODIUM LEVEL 144.0 MMOL/L (136-145)
[2025-02-02] VITALS: BP 132/80; TEMP 97.5; O2SAT 96
[2025-02-02 05:14] VITALS: BP 130/75; TEMP 97.7; O2SAT 96
[2025-02-02 07:24] LABS: PLATELET COUNT, AUTOMATED 545 10^3/uL (150-450)
[2025-02-02] MEDS ORDERED: MAGN400T33 PO (07:52)
[2025-02-02] MEDS ORDERED: PRED20TA PO (07:52)
[2025-02-02] MEDS ORDERED: SENN18TA PO (07:52)
[2025-02-02 08:03] LABS: ALT/SGPT 15.0 U/L (7.0-40); AST/SGOT 14.0 U/L (<34); CALCIUM LEVEL 9.0 MG/DL (8.3-10.6); CARBON DIOXIDE LEVEL 28.0 MMOL/L (20-31); CHLORIDE LEVEL 102.0 MMOL/L (98-107); CREATININE FOR GFR 1.08 MG/DL (0.70-1.30); GLOMERULAR FILTRATION RATE 68.9 (>35); POTASSIUM SERUM 4.4 MMOL/L (3.5-5.1); SODIUM LEVEL 141.0 MMOL/L (136-145)
[2025-02-02 08:20] VITALS: BP 142/75; TEMP 97.6; O2SAT 100
[2025-02-02] MEDS ORDERED: SENN8.6T58 PO (19:23)
== END 2025-02-02 11:35 | disposition home or self-care (01) | DRG 74 ==
LOC: M ED 10:40 → M ED INP 19:38 → M MS5PR 21:40
PROVIDERS: ADMIT Student in an Organized Health Care Education/Training Program; ATTEND Internal Medicine
DX: G61.81 Chronic inflammatory demyelinating polyneuritis (principal); I50.32 Chronic diastolic (congestive) heart failure; I11.0 Hypertensive heart disease with heart failure; E03.9 Hypothyroidism, unspecified; M48.061 Spinal stenosis, lumbar region without neurogenic claudication; I27.20 Pulmonary hypertension, unspecified; G47.33 Obstructive sleep apnea (adult) (pediatric); K74.60 Unspecified cirrhosis of liver; H26.9 Unspecified cataract; Z87.442 Personal history of urinary calculi; K59.00 Constipation, unspecified; R11.2 Nausea with vomiting, unspecified; Z79.890 Hormone replacement therapy; Z79.899 Other long term (current) drug therapy

== ENCOUNTER → 2025-03-14 | Outpatient (REF) | payer MEDICARE ==
[~2025-03-14] MED LIST changes: +ACET650T61 PO; -ANDR1.62 TOP; +MAGN400T33 PO; +MYCO500T PO; +PRED20TA PO; +SENN18TA PO; +SENN8.6T58 PO; +TEST75GE10 TOP
[2025-03-14 19:59] LABS: BASO # 0.0 10^3/uL (0.0-0.2); BASO % 0.2 % (0.0-1.0); EOS # 0.1 10^3/uL (0.0-0.5); EOS % 0.3 % (0.0-3.0); LYMPH # 5.0 10^3/uL (1.5-5.0); LYMPH % 28.0 % (24.0-44.0); MONO # 1.1 10^3/uL (0.0-0.8); MONO % 6.3 % (2.0-8.0); NEUTROPHILS # 11.6 10^3/uL (1.5-8.5); NEUTROPHILS % 64.6 % (36.0-66.0); PLATELET COUNT, AUTOMATED 474 10^3/uL (150-450)
== END ==
LOC: M LAB REF 10:30
PROVIDERS: ATTEND Student in an Organized Health Care Education/Training Program
DX: G61.81 Chronic inflammatory demyelinating polyneuritis (principal)

== ENCOUNTER 2025-06-08 19:49 | Emergency (ER) | payer MEDICARE ==
[~2025-06-08] VITALS: Ht 177.8 cm; Wt 74.4 kg
[2025-06-08] MEDS ORDERED: PRED10TA2 PO (20:01)
[2025-06-08 22:06] LABS: BASO # 0.1 10^3/uL (0.0-0.2); BASO % 0.3 % (0.0-1.0); EOS # 0.0 10^3/uL (0.0-0.5); EOS % 0.1 % (0.0-3.0); LYMPH # 1.7 10^3/uL (1.5-5.0); LYMPH % 6.0 % (24.0-44.0); MONO # 1.2 10^3/uL (0.0-0.8); MONO % 4.4 % (2.0-8.0); NEUTROPHILS # 24.4 10^3/uL (1.5-8.5); NEUTROPHILS % 88.4 % (36.0-66.0); PLATELET COUNT, AUTOMATED 370 10^3/uL (150-450)
[2025-06-08 22:35] LABS: ETHYL ALCOHOL (ETHANOL) 0.006 % (0.000-0.010)
[2025-06-08 22:37] LABS: CALCIUM LEVEL 8.2 MG/DL (8.3-10.6); CARBON DIOXIDE LEVEL 30.0 MMOL/L (20-31); CHLORIDE LEVEL 98.0 MMOL/L (98-107); CREATININE FOR GFR 0.92 MG/DL (0.70-1.30); GLOMERULAR FILTRATION RATE 83.6 (>35); POTASSIUM SERUM 4.3 MMOL/L (3.5-5.1); SODIUM LEVEL 137.0 MMOL/L (136-145)
[2025-06-08] MEDS: KETOROLAC 30 MG/ML 1 ML VIAL IV ONE (22:51)
[2025-06-09] MEDS ORDERED: KETO-204 PO (00:15)
[2025-06-09] MEDS ORDERED: HYDR-3713 PO (00:15)
[2025-06-09 06:39] VITALS: BP 167/92; TEMP 96.2; O2SAT 98
== END 2025-06-09 06:42 | disposition home or self-care (01) ==
LOC: EDBD 19:49 → M ED 19:49 → EDSEX 19:49 → M ED 06-09 06:42
DX: S42.291A Other displaced fracture of upper end of right humerus, initial encounter for closed fracture (principal); Y92.9 Unspecified place or not applicable; Y93.9 Activity, unspecified; Y99.9 Unspecified external cause status; W00.0XXA Fall on same level due to ice and snow, initial encounter; I50.22 Chronic systolic (congestive) heart failure; E03.9 Hypothyroidism, unspecified; Z79.1 Long term (current) use of non-steroidal anti-inflammatories (NSAID); Z79.2 Long term (current) use of antibiotics; Z79.52 Long term (current) use of systemic steroids; Z79.899 Other long term (current) drug therapy
CPT/HCPCS: 73030; 80048; 82077; 84145; 85025; 96374; 96375; 99285; J1885; J3010

== ENCOUNTER → 2025-06-14 | Outpatient (CLI) | payer MEDICARE ==
[~2025-06-14] MED LIST changes: +HYDR-3713 PO; +KETO-204 PO
[2025-06-14 11:46] LABS: PLATELET COUNT, AUTOMATED 483 10^3/uL (150-450)
[2025-06-14 12:12] LABS: CALCIUM LEVEL 8.3 MG/DL (8.3-10.6); CARBON DIOXIDE LEVEL 31.0 MMOL/L (20-31); CHLORIDE LEVEL 99.0 MMOL/L (98-107); CREATININE FOR GFR 1.07 MG/DL (0.70-1.30); GLOMERULAR FILTRATION RATE 69.7 (>35); MAGNESIUM LEVEL 1.8 MG/DL (1.8-2.4); POTASSIUM SERUM 3.8 MMOL/L (3.5-5.1); SODIUM LEVEL 141.0 MMOL/L (136-145)
== END ==
LOC: M LAB 11:10
PROVIDERS: ATTEND Physician Assistant
DX: I50.32 Chronic diastolic (congestive) heart failure (principal); I49.3 Ventricular premature depolarization

== ENCOUNTER → 2025-06-19 | Outpatient (CLI) | payer MEDICARE | LOC: M SOG 10:12 | PROVIDERS: ATTEND Student in an Organized Health Care Education/Training Program | DX: M25.511 Pain in right shoulder (principal) ==

== ENCOUNTER → 2025-06-27 | Outpatient (CLI) | payer MEDICARE ==
[~2025-06-27] MED LIST changes: +SENN-186 PO
[2025-06-27 09:50] LABS: BASO # 0.1 10^3/uL (0.0-0.2); BASO % 0.5 % (0.0-1.0); EOS # 0.1 10^3/uL (0.0-0.5); EOS % 0.7 % (0.0-3.0); LYMPH # 3.6 10^3/uL (1.5-5.0); LYMPH % 23.0 % (24.0-44.0); MONO # 0.9 10^3/uL (0.0-0.8); MONO % 6.0 % (2.0-8.0); NEUTROPHILS # 10.7 10^3/uL (1.5-8.5); NEUTROPHILS % 69.1 % (36.0-66.0); PLATELET COUNT, AUTOMATED 483 10^3/uL (150-450)
== END ==
LOC: M LAB 09:01
PROVIDERS: ATTEND Student in an Organized Health Care Education/Training Program
DX: G61.81 Chronic inflammatory demyelinating polyneuritis (principal)